=== PATIENT | male | born 1975 | race Hispanic/Latino ===

== ENCOUNTER 2020-05-10 20:46 | Emergency (ER) | payer BC, OTHER ==
--- OUTSIDE RECORDS SUMMARY | 2020-05-10 20:50 | XMS REPORT | Continuity of Care Document ---
:1975 Author Organization [facility] t Address [address] [place] [address] Care Team Providers Name Role Phone James GREEN Attending Clinician Jhon BENDER, T Attending Clinician Unavailable Lab, Fam Pob I Attending Clinician Unavailable Problems Condition Condition Condition Status Onset Resolution Last Treating Co mments Source Name Details Category Date Date Treatment Clinician Date Abscess or Abscess or Problem Active [facility] cellulitis cellulitis Sallie kes - of scalp [facility] Allergic Allergic Problem [facility] Obesity Obesity Problem [facility] Adult BMI Adult BMI Problem Active [facility] 39.0-39.9 39.0-39.9 Luke s - kg/sq m kg/sq m [facility] 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 [facility] Hyperlipid Hyperlipid Problem Active [facility] emia, emia, [facility] - mixed mixed [facility] Benign Benign Problem Active [facility] essential essential Luke s - HTN HTN [facility] Prediabete Prediabete Problem Active [facility] s s [facility] Dermoid Dermoid Diagnosis Active [facility] cyst of cyst of [facility] - scalp scalp [facility] Allergies, Adverse Reactions, Alerts This patient has no known allergies or adverse reactions. Medications Ordered Filled Start Stop Current Ordering Indication Dosage Frequency Signature Comments Components Source Medication Medication Date Date Medication? Clinician (SIG) Name Name Bactricholo WATTERS Bactrim DS 2018- 2019- No Ronni [address] [facility] 07-07 [facility]ita [facility] - 00:00: 00:00 [facility] 00 :00 [facility] Yes Ronni [address] [facility] Allergy Allergy Kovacev [facility] Lisinopril- Lisinopril- Yes Ronni [address] [facility] [address] Hydrochloro Hydrochloro Kovacev [facility] - thiazide thiazide [facility] Procedures This patient has no known procedures. Encounters Start End Encounter Admission Attending Care Care Encounter Source Date/Time Date/Time Type Type Clinicians Facility Department ID 2020-03-12 2020-03-12 Emergency Ramirez, [facility] [id number] 10:36:00 13:00:00 Tiago Villa [id number] [place] [id number] [place] [id number] 2020-03-12 2020-03-12 Nurse BEVERLEY Ferreira [id number] 00:00:00 00:00:00 Triage Shae MASON [id number] [facility] [id number] 2020-03-05 2020-03-05 Laboratory Lab, [facility] [id number] 13:09:50 13:29:50 Only Fam Pob I Health [id number] [place] [id number] Professio [id number] [address] 2018-07-07 2018-07-07 Outpatient [place] [id number] [address] 15:45:00 15:45:00 t Specialty/U [facility] 2018-07-07 2018-07-07 [facility]patient [place] [id number] 10:00:00 10:00:00 t [facility] Medicine [facility] 2018-04-30 2018-04-30 Outpatient [place] [id number] [address] 08:00:00 08:00:00 t Shop[facility] Medicine Outpati ent Clinics Results This patient has no known results.
--- NOTE | 2020-05-11 00:08 | ER ---
Nurse's Notes [facility] Name: Ozzy Vail Age: 44 yrs Sex: Male : 1975 Arrival Date: 05/10/2020 Time: 20:53 Bed 19 Private MD: Diagnosis: Chest pain, unspecified;Essential (primary) hypertension Presentation: 05/10 20:55 Method Of Arrival: Ambulatory ca1 20:55 Chief complaint: Patient states: Chest pain started around noon, gotten worse. reports ca1 lightheadedness. Coronavirus screen: Client denies travel out of the [place] in the last 14 days. At this time, the client does not indicate any symptoms associated with coronavirus-19. Ebola Screen: Patient negative for fever greater than or equal to 101.5 degrees Fahrenheit, and additional compatible Ebola Virus Disease symptoms Patient denies exposure to infectious person. Patient denies travel to an Ebola-affected area in the 21 days before illness onset. No symptoms or risks identified at this time. Initial Sepsis Screen: Does the patient meet any 2 criteria? No. Patient's initial sepsis screen is negative. Does the patient have a suspected source of infection? No. Patient's initial sepsis screen is negative. Risk Assessment: Do you want to hurt yourself or someone else? Patient reports no desire to harm self or others. Onset of symptoms was May 10, 2020. 20:55 Acuity: LAITH 3 ca1 Historical: - Allergies: 21:03 No Known Allergies; ca1 - Home Meds: 05/11 00:35 Zyrtec 10 mg oral tab 1 tab once daily [Active]; aspirin 81 mg Oral TbEC 1 tab once sf daily [Active]; multivitamin oral tab daily [Active]; omeprazole 20 mg Oral cpDR 1 cap once daily [Active]; losartan oral oral 1 tab once daily [Active]; - PMHx: 05/10 21:03 Hypertension; ca1 - PSHx: 21:03 elbow surgery; Tonsillectomy; ca1 - Immunization history:: Flu vaccine is not up to date. - Social history:: Smoking status: Patient denies any tobacco usage or history of. - Family history:: not pertinent. Screenin:53 Abuse screen: Denies threats or abuse. Denies injuries from another. Nutritional sf screening: No deficits noted. Tuberculosis screening: No symptoms or risk factors identified. Never had TB. Possible symptoms: None Risk factors: None. Fall Risk None identified. No fall in past 12 months (0 pts). No secondary diagnosis (0 pts). IV access (20 points). Ambulatory Aid- None/Bed Rest/Nurse Assist (0 pts). Gait- Normal/Bed Rest/Wheelchair (0 pts) Mental Status- Oriented to own ability (0 pts). Total Matson Fall Scale indicates No Risk (0-24 pts). Assessment: 23:53 General: Appears in no apparent distress. comfortable, Behavior is calm, cooperative, sf appropriate for age. Pain: Complains of pain in anterior aspect of right upper chest and anterior aspect of left upper chest Pain does not radiate. Pain currently is 5 out of 10 on a pain scale. Quality of pain is described as pressure, Pain began suddenly. Neuro: No deficits noted. Level of Consciousness is awake, alert, Oriented to person, place, time, situation. Cardiovascular: Reports chest pain, lightheadedness, Denies nausea, shortness of breath, syncope, vomiting, Patient's skin is warm and dry. Rhythm is sinus rhythm Chest pain quality is pressure. Respiratory: No deficits noted. Airway is patent Respiratory effort is even, unlabored, Respiratory pattern is regular, symmetrical, Denies cough, shortness of breath. GI: No signs and/or symptoms were reported involving the gastrointestinal system. : No signs and/or symptoms were reported regarding the genitourinary system. Derm: No signs and/or symptoms reported regarding the dermatologic system. Skin is pink, warm \T\ dry. 05/11 05:15 Reassessment: Patient appears in no apparent distress at this time. No changes from sf previously documented assessment. Patient and/or family updated on plan of care and expected duration. Pain level reassessed. Patient is alert, oriented x 3, equal unlabored respirations, skin warm/dry/pink. Patient states feeling better. Vital Signs: 05/10 20:55 BP 135 / 77; Pulse 93; Resp 18 S; Temp 97(TE); Pulse Ox 97% on R/A; Weight 138.35 kg ca1 (R); Height 6 ft. 1 in. (185.42 cm) (R); Pain 6/10; 23:49 BP 139 / 89; Pulse 80; Resp 18; Pulse Ox 98% ; Pain 5/10; sf 05/11 00:30 BP 143 / 98; Pulse 89; Resp 16; Pulse Ox 98% ; sf 01:00 BP 135 / 85; Pulse 75; Pulse Ox 98% ; sf 01:31 Pain 2/10; sf 02:00 BP 128 / 98; Pulse 70; Pulse Ox 97% ; sf 02:30 BP 125 / 84; Pulse 71; Resp 16; Pulse Ox 98% ; sf 02:37 Pain 0/10; sf 03:00 BP 117 / 79; Pulse 72; Resp 16; Pulse Ox 98% ; sf 04:00 BP 115 / 77; Pulse 73; Resp 16; Pulse Ox 97% ; sf 05:03 BP 140 / 93; Pulse 85; Resp 16; Pulse Ox 98% ; sf 05/10 20:55 Body Mass Index 40.24 (138.35 kg, 185.42 cm) ca1 Vitals: 05:03 Cardiac Rhythm Assessment Sinus rhythm. ED Course: 05/10 20:53 Patient arrived in ED. bp1 21:02 Triage completed. ca1 21:03 Arm band placed on right wrist. ca1 22:53 Patient has correct armband on for positive identification. Placed in gown. Bed in low sf position. Call light in reach. Side rails up X 1. vehicle monitor technician on. Pulse ox on. NIBP on. Door closed. Noise minimized. Visitors limited. Verbal reassurance given. 23:48 Rubin Taylor MD is Attending Physician. sunny 23:48 Bryant Tamayo, NPAOLEON is Primary Nurse. sf 23:53 Patient maintains SpO2 saturation greater than 95% on room air. 05/11 00:06 Hilton Santiago is Hospitalizing Provider. sunny 00:20 Initial lab(s) drawn, by me, sent to lab. Inserted saline lock: 20 gauge in right sf antecubital area, using aseptic technique. Blood collected. 00:25 No provider procedures requiring assistance completed. COVID swab sent to lab. sf 00:32 X-ray(s) taken. sf 00:33 XRAY Chest (1 view) Sent. sf 00:49 XRAY Chest (1 view) In Process Unspecified. EDMS 02:37 Repeat lab(s) drawn. by me, sent to lab. sf 04:54 CT Chest For PE Angio Sent. sf 05:10 CT Chest For PE Angio In Process Unspecified. EDMS 05:33 Chris Reeves MD is Referral Physician. sunny 05:33 Giuseppe Sawant MD is Referral Physician. sunny 06:19 IV discontinued, intact, bleeding controlled, No redness/swelling at site. Pressure sf dressing applied. Administered Medications: 00:44 Drug: NS 0.9% 1000 ml Route: IV; Rate: 125 ml/hr; Site: right antecubital; sf 06:24 Follow up: Response: No adverse reaction; IV Status: Completed infusion; IV Intake: sf 633ml 00:44 Drug: morphine 4 mg Route: IVP; Site: right antecubital; sf 04:03 Follow up: Response: No adverse reaction sf 00:44 Drug: Zofran (Ondansetron) 4 mg Route: IVP; Site: right antecubital; sf 04:03 Follow up: Response: No adverse reaction sf 00:45 Drug: Pepcid 20 mg Route: IVP; Site: right antecubital; sf 04:03 Follow up: Response: No adverse reaction sf 00:49 Drug: Lopressor 5 mg Route: IVP; Site: right antecubital; sf 04:03 Follow up: Response: No adverse reaction sf 00:54 Drug: Aspirin Chewable Tablet 324 mg Route: PO; sf 04:03 Follow up: Response: No adverse reaction sf 01:31 Drug: GI Cocktail without - (Maalox Suspension 30 ml, Lidocaine Liquid 2 % 15 sf ml) Route: PO; 04:02 Follow up: Response: No adverse reaction sf 05:15 Drug: Zithromax 500 mg Route: IVPB; Infused Over: 1 hrs; Site: right antecubital; sf 06:19 Follow up: Response: Medication administered at discharge.; IV Status: Completed sf infusion; IV Intake: 250ml 05:38 Not Given (Patient Refused): Decadron - Dexamethasone 10 mg IVP once sf Intake: 06:19 IV: 250ml; Total: 250ml. sf 06:24 IV: 633ml; Total: 883ml. Outcome: 00:07 Decision to Hospitalize by Provider. sunny 05:33 Discharge ordered by . sunny 05:42 Discharged to home ambulatory, with family. sf 05:42 Condition: stable 05:42 Discharge instructions given to patient, family, Instructed on discharge instructions, follow up and referral plans. medication usage, Demonstrated understanding of instructions, follow-up care, medications, Prescriptions given X 3. 06:27 Patient left the ED. sf Signatures: Dispatcher [employer] EDRubin Cueto MD MD cha Acob, Cheryl, RN RN ca1 Maria Elena Boateng Steven, RN RN sf Corrections: (The following items were deleted from the chart) 00:35 05/10 21:03 Home Meds: None; [facility]
--- NOTE | 2020-05-11 00:08 | EDPHYS ---
Physician Documentation [facility] Name: Ozzy Vail Age: 44 yrs Sex: Male : 1975 Arrival Date: 05/10/2020 Time: 20:53 Bed 19 Private MD: GABRIELA Physician Rubin Taylor HPI: 05/11 00:03 This 44 yrs old Male presents to ER via Ambulatory with complaints of Chest sunny Pain > 30 y/o. 00:03 The patient or guardian reports chest pain that is located primarily in the substernal sunny area. Onset: yesterday. The pain does not radiate. Associated signs and symptoms: The patient has no apparent associated signs or symptoms. The chest pain is described as causing indigestion, a pressure. Duration: The patient or guardian reports multiple episodes, with no pattern. Modifying factors: The symptoms are alleviated by nothing. the symptoms are aggravated by nothing. emotionally stressful situations. Severity of pain: At its worst the pain was mild in the emergency department the pain is unchanged. The patient has not experienced similar symptoms in the past. Historical: - Allergies: 05/10 21:03 No Known Allergies; ca1 - Home Meds: 05/11 00:35 Zyrtec 10 mg oral tab 1 tab once daily [Active]; aspirin 81 mg Oral TbEC 1 tab once sf daily [Active]; multivitamin oral tab daily [Active]; omeprazole 20 mg Oral cpDR 1 cap once daily [Active]; losartan oral oral 1 tab once daily [Active]; - PMHx: 05/10 21:03 Hypertension; ca1 - PSHx: 21:03 elbow surgery; Tonsillectomy; ca1 - Immunization history:: Flu vaccine is not up to date. - Social history:: Smoking status: Patient denies any tobacco usage or history of. - Family history:: not pertinent. ROS: 05/11 00:03 Constitutional: Negative for fever, chills, and weight loss, Eyes: Negative for injury, sunny pain, redness, and discharge, ENT: Negative for injury, pain, and discharge, Neck: Negative for injury, pain, and swelling, Respiratory: Negative for shortness of breath, cough, wheezing, and pleuritic chest pain, Abdomen/GI: Negative for abdominal pain, nausea, vomiting, diarrhea, and constipation, Back: Negative for injury and pain, : Negative for injury, bleeding, discharge, and swelling, MS/Extremity: Negative for injury and deformity, Skin: Negative for injury, rash, and discoloration, Neuro: Negative for headache, weakness, numbness, tingling, and seizure, Psych: Negative for depression, anxiety, suicide ideation, homicidal ideation, and hallucinations, Allergy/Immunology: Negative for hives, rash, and allergies, Endocrine: Negative for neck swelling, polydipsia, polyuria, polyphagia, and marked weight changes, Hematologic/Lymphatic: Negative for swollen nodes, abnormal bleeding, and unusual bruising. Cardiovascular: Positive for chest pain, of the chest. Exam: 00:03 Constitutional: This is a well developed, well nourished patient who is awake, alert, sunny and in no acute distress. Head/Face: Normocephalic, atraumatic. Eyes: Pupils equal round and reactive to light, extra-ocular motions intact. Lids and lashes normal. Conjunctiva and sclera are non-icteric and not injected. Cornea within normal limits. Periorbital areas with no swelling, redness, or edema. ENT: Nares patent. No nasal discharge, no septal abnormalities noted. Tympanic membranes are normal and external auditory canals are clear. Oropharynx with no redness, swelling, or masses, exudates, or evidence of obstruction, uvula midline. Mucous membranes moist. Neck: Trachea midline, no thyromegaly or masses palpated, and no cervical lymphadenopathy. Supple, full range of motion without nuchal rigidity, or vertebral point tenderness. No Meningismus. Chest/axilla: Normal chest wall appearance and motion. Nontender with no deformity. No lesions are appreciated. Cardiovascular: Regular rate and rhythm with a normal S1 and S2. No gallops, murmurs, or rubs. Normal PMI, no JVD. No pulse deficits. Respiratory: Lungs have equal breath sounds bilaterally, clear to auscultation and percussion. No rales, rhonchi or wheezes noted. No increased work of breathing, no retractions or nasal flaring. Abdomen/GI: Soft, non-tender, with normal bowel sounds. No distension or tympany. No guarding or rebound. No evidence of tenderness throughout. Back: No spinal tenderness. No costovertebral tenderness. Full range of motion. Male : Normal genitalia with no discharge or lesions. Skin: Warm, dry with normal turgor. Normal color with no rashes, no lesions, and no evidence of cellulitis. MS/ Extremity: Pulses equal, no cyanosis. Neurovascular intact. Full, normal range of motion. Neuro: Awake and alert, GCS 15, oriented to person, place, time, and situation. Cranial nerves II-XII grossly intact. Motor strength 5/5 in all extremities. Sensory grossly intact. Cerebellar exam normal. Normal gait. Psych: Awake, alert, with orientation to person, place and time. Behavior, mood, and affect are within normal limits. Vital Signs: 05/10 20:55 BP 135 / 77; Pulse 93; Resp 18 S; Temp 97(TE); Pulse Ox 97% on R/A; Weight 138.35 kg ca1 (R); Height 6 ft. 1 in. (185.42 cm) (R); Pain 6/10; 23:49 BP 139 / 89; Pulse 80; Resp 18; Pulse Ox 98% ; Pain 5/10; sf 05/11 00:30 BP 143 / 98; Pulse 89; Resp 16; Pulse Ox 98% ; sf 01:00 BP 135 / 85; Pulse 75; Pulse Ox 98% ; sf 01:31 Pain 2/10; sf 02:00 BP 128 / 98; Pulse 70; Pulse Ox 97% ; sf 02:30 BP 125 / 84; Pulse 71; Resp 16; Pulse Ox 98% ; sf 02:37 Pain 0/10; sf 03:00 BP 117 / 79; Pulse 72; Resp 16; Pulse Ox 98% ; sf 04:00 BP 115 / 77; Pulse 73; Resp 16; Pulse Ox 97% ; sf 05:03 BP 140 / 93; Pulse 85; Resp 16; Pulse Ox 98% ; sf 05/10 20:55 Body Mass Index 40.24 (138.35 kg, 185.42 cm) ca1 MDM: 05/10 23:48 Patient medically screened. sunny 05/11 00:07 Differential diagnosis: abnormal EKG, coronary artery disease chest wall pain, sunny esophagitis, hiatal hernia, peptic ulcer disease, stable angina, unstable angina. HEART Score: History: Moderately Suspicious (1), ECG: Non specific repolarization disturbance / LBTB / PM (1), Age: < or = 45 years (0), Risk Factors: 1 or 2 risk factors (1), [Hypertension] [Obesity] Troponin: < or = 1 x Normal Limit (0). The patient was given aspirin in the Emergency Department. The patient's deep vein thrombosis risk score was calculated as follows: Total Score: 0. This patient was found to be at low risk for a deep vein thrombosis by using the Well's assessment criteria. The patient's pulmonary embolism risk score was calculated as follows: Total Score: 0-2 points. This patient was found to be at low risk for a pulmonary embolism by using the Well's assessment criteria. JOSE ALFREDO Risk Score: 1 - Three or more CAD risk factors, [Family Hx], [HTN], [Elevated Cholesterol]. Data reviewed: vital signs, nurses notes, lab test result(s), EKG, radiologic studies, plain films. Data interpreted: case monitor: rate is 80 beats/min, rhythm is regular, Pulse oximetry: on room air is 98 %. Test interpretation: by ED physician or midlevel provider: ECG, plain radiologic studies. Counseling: I had a detailed discussion with the patient and/or guardian regarding: the historical points, exam findings, and any diagnostic results supporting the discharge/admit diagnosis, lab results, radiology results. 05/11 00:03 Order name: Basic Metabolic Panel; Complete Time: 01: [facility] 05/11 00:03 Order name: CBC with Diff; Complete Time: 01:04 [facility] 05/11 00:03 Order name: LFT's; Complete Time: 01:04 [facility] 05/11 00:03 Order name: Magnesium; Complete Time: 01:04 [facility] 05/11 00:03 Order name: NT PRO-BNP; Complete Time: 01:04 [facility] 05/11 00:03 Order name: PT-INR; Complete Time: 01:04 [facility] 05/11 00:03 Order name: Troponin (emerg Dept Use Only); Complete Time: 01:04 [facility] 05/11 00:03 Order name: XRAY Chest (1 view) [facility] 05/11 02:11 Order name: Troponin (emerg Dept Use Only): 230 am; Complete Time: 03:26 [facility] 05/11 03:59 Order name: SARS-COV-2 RT PCR; Complete Time: 04:34 [facility] 05/11 04:36 Order name: CT Chest For PE Angio 05/10 21:03 Order name: EKG; Complete Time: 21:03 [facility] 05/10 21:03 Order name: EKG - Nurse/Tech; Complete Time: 21: [facility] 05/11 00:03 Order name: Cardiac monitoring; Complete Time: 00:12 [facility] 05/11 00:03 Order name: IV Saline Lock; Complete Time: 00:33 [facility] 05/11 00:03 Order name: Labs collected and sent; Complete Time: 00:12 [facility] 05/11 00:03 Order name: O2 Per Protocol; Complete Time: 00:12 [facility] 05/11 00:03 Order name: O2 Sat Monitoring; Complete Time: 00:12 [facility] Administered Medications: 00:44 Drug: NS 0.9% 1000 ml Route: IV; Rate: 125 ml/hr; Site: right antecubital; sf 06:24 Follow up: Response: No adverse reaction; IV Status: Completed infusion; IV Intake: sf 633ml 00:44 Drug: morphine 4 mg Route: IVP; Site: right antecubital; sf 04:03 Follow up: Response: No adverse reaction sf 00:44 Drug: Zofran (Ondansetron) 4 mg Route: IVP; Site: right antecubital; sf 04:03 Follow up: Response: No adverse reaction sf 00:45 Drug: Pepcid 20 mg Route: IVP; Site: right antecubital; sf 04:03 Follow up: Response: No adverse reaction sf 00:49 Drug: Lopressor 5 mg Route: IVP; Site: right antecubital; sf 04:03 Follow up: Response: No adverse reaction sf 00:54 Drug: Aspirin Chewable Tablet 324 mg Route: PO; sf 04:03 Follow up: Response: No adverse reaction sf 01:31 Drug: GI Cocktail without - (Maalox Suspension 30 ml, Lidocaine Liquid 2 % 15 sf ml) Route: PO; 04:02 Follow up: Response: No adverse reaction sf 05:15 Drug: Zithromax 500 mg Route: IVPB; Infused Over: 1 hrs; Site: right antecubital; sf 06:19 Follow up: Response: Medication administered at discharge.; IV Status: Completed sf infusion; IV Intake: 250ml 05:38 Not Given (Patient Refused): Decadron - Dexamethasone 10 mg IVP once sf Disposition: 04:37 Co-signature as Attending Physician, Rubin Taylor MD I agree with the assessment and usnny plan of care. Disposition: 05/11/20 05:33 Discharged to Home. Impression: Chest pain, unspecified, Essential (primary) hypertension. - Condition is Stable. - Discharge Instructions: Nonspecific Chest Pain, Hypertension, Nonspecific Chest Pain, [id number], Hypertension, [id number], Aspirin and Your Heart, Managing Your Hypertension, COVID-19. - Prescriptions for Pepcid 20 mg Oral Tablet - take 1 tablet by ORAL route every 12 hours for 30 days; 20 tablet. Albuterol Sulfate 90 mcg/actuation - inhale 1-2 puff by INHALATION route every 4-6 hours; 1 Inhaler. Zithromax 500 mg Oral Tablet - take 1 tablet by ORAL route once daily for 4 days; 4 tablet. - Medication Reconciliation Form, Thank You Letter, Antibiotic Education, Prescription Opioid Use form. - Follow up: Private Physician; When: 2 - 3 days; Reason: Recheck today's complaints, Continuance of care, Re-evaluation by your physician. Follow up: Chris Reeves; When: 2 - 3 days; Reason: Recheck today's complaints, Re-evaluation by your physician. Follow up: Giuseppe Sawant; When: 2 - 3 days; Reason: Recheck today's complaints, Re-evaluation by your physician. - Problem is new. - Symptoms have improved. Signatures: Dispatcher [employer] Rubin Sanchez MD MD cha Roszak, Josh, PA PA [id number] Acob, Cheryl, RN RN ca1 Bryant Tamayo RN RN sf Corrections: (The following items were deleted from the chart) 00:35 05/10 21:03 Home Meds: None; ca1 sf 05/11 02:12 00:07 HEART Score: History: Moderately Suspicious (1), ECG: Non specific repolarization jr8 disturbance / LBTB / PM (1), Age: < or = 45 years (0), Risk Factors: > or = 3 Risk factors for atherosclerotic disease (2), [Hypertension] [+ Family HX] [Obesity] Troponin: < or = 1 x Normal Limit (0), sunny 02:55 00:05 CORONAVIRUS+MR.LAB.BRZ ordered. [facility] 04:37 00:07 Hospitalization Ordered by Hilton Santiago for Observation. Preliminary diagnosis sunny is Chest pain, unspecified; Angina pectoris; Essential (primary) hypertension. Bed requested for Telemetry/MedSurg (observation). Status is Observation. Condition is Fair. Problem is new. Symptoms have improved. sunny 06:27 05:33 05/11/2020 05:33 Discharged to Home. Impression: Chest pain, unspecified; sf Essential (primary) hypertension. Condition is Stable. Discharge Instructions: Nonspecific Chest Pain, Hypertension, Nonspecific Chest Pain, [id number], Hypertension, Iyan-zd-[id number], Aspirin and Your Heart, Managing Your Hypertension, COVID-19. Prescriptions for Pepcid 20 mg Oral Tablet - take 1 tablet by ORAL route every 12 hours for 30 days; 20 tablet, Albuterol Sulfate 90 mcg/actuation - inhale 1-2 puff by INHALATION route every 4-6 hours; 1 Inhaler, Zithromax 500 mg Oral Tablet - take 1 tablet by ORAL route once daily for 4 days; 4 tablet. and Forms are Medication Reconciliation Form, Thank You Letter, Antibiotic Education, Prescription Opioid Use. Follow up: Private Physician; When: 2 - 3 days; Reason: Recheck today's complaints, Continuance of care, Re-evaluation by your physician. Follow up: Chris Reeves; When: 2 - 3 days; Reason: Recheck today's complaints, Re-evaluation by your physician. Follow up: Giuseppe Sawant; When: 2 - 3 days; Reason: Recheck today's complaints, Re-evaluation by your physician. Problem is new. Symptoms have improved. sunny
[2020-05-11 00:51] LABS: Protime INR 1.16
[2020-05-11 00:52] LABS: Absolute Lymphocytes (CBC) 2.5 K/uL (0.7-4.9); Basophils % 0.9 % (0-1.3); Hematocrit 39.7 % (39.6-49.0); Lymphocytes % 23.3 % (15.3-44.8); MPV 9.2 fL (7.6-11.3)
[2020-05-11] MEDS ORDERED: METOPROLOL TAR 50 MG TAB ONE (00:56)
[2020-05-11] MEDS ORDERED: ASPIRIN EC 81 MG TAB PO ONE (00:57)
[2020-05-11] MEDS ORDERED: METOPROLOL TARTRATE 5 MG/5 ML INJ IV ONE (00:57)
[2020-05-11] MEDS ORDERED: MORPHINE 4 MG/ML SYR ONE (00:57)
[2020-05-11] MEDS ORDERED: ENOXAPARIN 100 MG/ML SYR SQ ONE (00:57)
[2020-05-11] MEDS ORDERED: ONDANSETRON 4 MG/2 ML VIAL ONE (00:57)
[2020-05-11] MEDS ORDERED: FAMOTIDINE 20 MG/2 ML VIAL IV ONE (00:58)
[2020-05-11] MEDS ORDERED: NA CHLORIDE 0.9% 1,000 ML ONE (00:58)
[2020-05-11] MEDS ORDERED: ENOXAPARIN 40 MG/0.4 ML SQ ONE (00:58)
[2020-05-11 01:02] LABS: ALT/SGPT 38 U/L (12-78); AST/SGOT 13 U/L (15-37); Albumin 3.8 g/dL (3.4-5.0); Alkaline Phosphatase 84 U/L (45-117); BUN Blood Urea Nitrogen 14 mg/dL (7-18); Bicarbonate 26 mmol/L (21-32); Bilirubin Direct 0.1 mg/dL (0-0.2); Bilirubin Total 0.6 mg/dL (0.2-1.0); Glucose Level 108 mg/dL (74-106); NT PRO-BNP 14 pg/mL (<125); Potassium 3.7 mmol/L (3.5-5.1); Protein, Total 7.9 g/dL (6.4-8.2); Sodium Level 137 mmol/L (136-145); Troponin (Emerg Dept Use Only) < 0.02 ng/mL (0.0-0.045)
[2020-05-11] MEDS ORDERED: ASPIRIN 81 MG CHEWABLE TABLET ONE (01:11)
[2020-05-11] MEDS ORDERED: MAGNES/ALUMIN/SIMET 30ML UCUP ONE (01:44)
[2020-05-11] MEDS ORDERED: LIDOCAINE VISCOUS 2% SOLN 15 ML UDC ONE (01:44)
[2020-05-11] MEDS ORDERED: AZITHROMYCIN 500 MG INJ IVPB ONE (05:26)
[2020-05-11] MEDS ORDERED: NA CHLORIDE 0.9% 250 ML ONE (05:26)
--- NOTE | 2020-05-11 07:55 | RAD REPORT ---
EXAM DESCRIPTION: RAD - Chest Single View - 05/11/2020 12:49 am CLINICAL HISTORY: CHEST PAIN COMPARISON: November 2012 TECHNIQUE: AP portable chest image was obtained 05/11/2020 12:49 am . FINDINGS: Lung volumes are low accentuating heart, vasculature and lung markings. No peripheral mass or consolidation. Heart size is magnified by the exam limitations. Significant failure or volume ove rload are doubtful. No measurable pleural effusion and no pneumothorax. No acute bony abnormality see n. No acute aortic findings suspected. IMPRESSION: Limited study without acute cardiopulmonary finding.
[2020-05-11 08:08] VITALS: TEMP 97
[2020-05-11 08:20] VITALS: BP 140/93; O2SAT 98
--- NOTE | 2020-05-11 12:19 | RAD REPORT ---
EXAM DESCRIPTION: CT - Chest For Pe Angio - 05/11/2020 7:07 am CLINICAL HISTORY: The patient is 44 years old and is Male; CHEST PAIN TECHNIQUE: Axial computed tomographic angiography images of the chest with intravenous contrast. S agittal and coronal reformatted images were created and reviewed. This CT exam was performed using one or more of the following dose reduction techniques: automated exposure control, adjustment of t he mA and/or kV according to patient size, and/or use of iterative reconstruction technique. MIP reconstructed images were created and reviewed. COMPARISON: No relevant prior studies available. FINDINGS: PULMONARY ARTERIES: Unremarkable. No pulmonary embolism. AORTA: No acute findings. No thoracic aortic aneurysm. LUNGS: Unremarkable. No mass. No consolidation. PLEURAL SPACE: Unremarkable. No significant effusion. No pneumothorax. HEART: Unremarkable. No cardiomegaly. No significant pericardial effusion. No evidence of RV dysfunction. BONES/JOINTS: No acute fracture. No dislocation. SOFT TISSUES: Unremarkable. LYMPH NODES: Unremarkable. No enlarged lymph nodes. IMPRESSION: Normal chest CTA. No pulmonary embolism. Electronically signed by: Linda Hernandez MD 05/11/2020 5:19 AM APPLICATION PACKAGING CONSULTANT Due to temporary technical issues with the PACS/Fluency reporting system, reports are being signed by the in house radiologist without review as a courtesy to ensure prompt reporting. The interpreting r adiologist is fully responsible for the content of the report.
--- NOTE | 2020-05-11 14:10 | EKG ---
Test Date: 2020-05-10 Test Time: 20:59:55 Plasma Processing Technician: BILL MEASUREMENT RESULTS: Intervals: Rate: 97 OR: 134 QRSD: 84 QT: 336 QTc: 426 [place]: P: 41 OR: 134 QRS: 39 T: -4 INTERPRETIVE STATEMENTS: Normal sinus rhythm Normal ECG Compared to ECG 12/07/2012 17:57:45 No significant changes Electronically Signed On 05-11-20 14:08:56 HUMAN RESOURCES DEPARTMENT SUPERVISOR by Giuseppe Sawant
== END 2020-05-11 06:27 | disposition home or self-care (01) ==
LOC: ER 20:46
DX: U07.1 COVID-19 (principal); I10 Essential (primary) hypertension; Z79.82 Long term (current) use of aspirin
CPT/HCPCS: 96365; 96361; 93005; 85025; 80048; 36415; 83735; 85610; 80076; 84484 ×2; 83880; 71275; 71045; 96375; 99285; U0003; Q9967; J0456; J7050; J7030; J2405; J1650

== ENCOUNTER 2022-07-21 14:45 | Emergency (ER) | payer BC ==
--- OUTSIDE RECORDS SUMMARY | 2022-07-21 15:41 | XMS REPORT | Continuity of Care Document ---
:1975 Author Organization [facility] t Address [address] [facility] [address] [place] [address] Care Team Providers Name Role Phone XAVIER LEWIS Primary Care Physician Unavailable SHANEKA CRAWLEY Attending Clinician Unavailable Shaneka Crawley DO Attending Clinician DARREN RAMIREZ Attending Clinician Unavailable Darren Ramirez MD Attending Clinician Jhon BENDER, Shae Jones Attending Clinician Unavailable Lab, Adc F[facility] Pob I Attending Clinician Unavailable Sandra Callejas Attending Clinician SANDRA MYERS Attending Clinician Unavailable DARREN RAMIREZ Admitting Clinician Unavailable Payers Payer Name Policy Type Policy Number Effective Date Expiration Date S samia [facility] [id number] 2021 00:00:00 [facility] [id number] 2017 00:00:00 Problems Condition Condition Condition Status Onset Resolution Last Treating Co mments Source Name Details Category Date Date Treatment Clinician Date Abscess or Abscess or Problem Active C ommon cellulitis cellulitis Sp melecio of scalp of scalp [facility] Heart Allergic Allergic Problem Active Commo n rhinitis rhinitis [facility] Obesity Obesity Problem Active Common [facility] Adult BMI Adult BMI Problem Active Com mon 39.0-39.9 39.0-39.9 Spir it kg/sq m kg/sq [facility] Onychomyco Onychomyco Problem Active C daria sis sis [facility] Hyperlipid Hyperlipid Problem Active C ommon emia, emia, Spirit mixed mixed - [facility] Benign Benign Problem Active Common essential essential Spir it HTN HTN - [facility] Prediabete Prediabete Problem Active C daria s s Spirit [facility] Dermoid Dermoid Diagnosis Active Commo n cyst of cyst of Spirit scalp scalp - [facility] Allergies, Adverse Reactions, Alerts Allergy Allergy Status Severity Reaction(s) Onset Inactive Treating Comm ents Source Name Type Date Date Clinician NO KNOWN Drug Active Univers ALLERGIE Class ity of S [facility] [place] [place] Social History Social Habit Start Date Stop Date Quantity Comments Source [facility] to [facility]2 [facility] Smoking Status Start Date Stop Date Source Unknown if ever smoked [facility] Medications Ordered Filled Start Stop Current Ordering Indication Dosage Frequency Signature Comments Components Source Medication Medication Date Date Medication? Clinician (SIG) Name Name ondansetron 2019-03 Yes [id number] 4mg Take 1 Univers 4 mg 2-28 tablet by ity of disintegrat 00:00: mouth [place] ing tablet 00 every 4 Medica l (four) Branch hours as needed for Nausea and Vomiting (N/V). benzonatate 2019-03 Yes [id number] 100mg Take 1 Univers 100 mg 2-28 capsule by ity of capsule 00:00: mouth 3 [place] 00 (three) Medical times Branch daily as needed for Cough. albuterol 2019-03 Yes [id number] 2{puff} Inhale 2 Univers 90 2-28 Puffs ity of mcg/actuati 00:00: every 4 Tanvir as on inhaler 00 (four) Medical hours as Branch needed for Wheezing or Shortness of Breath. Bactrim DS Bactrim DS 2018-0 2019- No Ronni 1 tablet Common 4-24 - Kovacev Spirit 00:00: 00:00 - [facility] 00 :00 [facility] Lisinopril- Lisinopril- Yes Ronni 1 tablet Common Hydrochloro Hydrochloro [facility] Spirit thiazide thiazide - [facility] Zyrtec Zyrtec Yes Ronni 1 tablet Common Allergy Allergy Babita [facility] Vital Signs Vital Name Observation Time Observation Value Comments Source Systolic blood 2020-03-12 17:30:00 161 mm[Hg] Univer sity of pressure [facility] Branch Diastolic blood 2020-03-12 17:30:00 100 mm[Hg] Unive rsity of pressure [facility] [place] [place] Heart rate 2020-03-12 17:30:00 97 /min Universi ty of [facility] [place] Respiratory rate 2020-03-12 17:30:00 23 /min Univ ersity of [facility] [place] Oxygen saturation in 2020-03-12 17:30:00 95 /min University of Arterial blood by [facility] Pulse oximetry Branch Body temperature 2020-03-12 16:43:00 36.94 Keily [facility] of [facility] [place] Body weight 2020-03-12 16:43:00 138[facility]347 [facility] Systolic blood 2020-03-12 17:30:00 161 mm[Hg] Univer sity of pressure [facility] [place] Diastolic blood 2020-03-12 17:30:00 100 mm[Hg] Unive rsity of pressure [facility] [place] Heart rate 2020-03-12 17:30:00 97 /min Universi ty of [facility] Respiratory rate 2020-03-12 17:30:00 23 /min Univ ersity of [facility] Oxygen saturation in 2020-03-12 17:30:00 95 /min University of Arterial blood by [facility] Pulse oximetry Branch Body temperature 2020-03-12 16:43:00 36.94 Keily [facility] Body weight 2020-03-12 16:43:00 138.347 kg [facility] Procedures Procedure Date / Time Performing Clinician Source Performed XR CHEST 1 VW 2020-03-12 17:04:47 Darren Ramirez [facility] TROPONIN I 2020-03-12 16:47:00 James Darren [facility] HEPATIC FUNCTION PANEL 2020-03-12 16:47:00 Darren Ramirez [facility] ([id number]) (ALB,T.PRO,BILI Medical Branch T,BU/BC,ALT,AST,ALK PHOS) BASIC METABOLIC PANEL 2020-03-12 16:47:00 Darren Ramirez [facility] (NA, K, CL, CO2, Medical Branch GLUCOSE, BUN, CREATININE, CA) CBC WITH DIFF 2020-03-12 16:47:00 Darren Ramirez o f [facility] [place] PROTHROMBIN TIME / INR 2020-03-12 16:47:00 Darren Ramirez [facility] ACTIVATED PARTIAL 2020-03-12 16:47:00 Darren Ramirez [facility] THRMPLAS TANNER [facility] N-TERMINAL PRO-BNP 2020-03-12 16:47:00 Darren Ramirez [facility] NOTICE OF PRIVACY 2020-03-12 16:34:49 Doctor Unassigned, No [facility] PR[facility] Name [facility] Branch CONSENT/REFUSAL FOR 2020-03-12 16:34:30 Doctor Unassigned, No [facility] DI[facility]NOS[facility] AND TREATMENT Name [facility] Encounters Start End Encounter Admission Attending Care Care Encounter Source Date/Time Date/Time Type Type Clinicians Facility Department ID 2022-07-22 2022-07-22 Outpatient CARI CRAWLEY [id number] Cari 14:00:00 14:00:00 SHANEKA mccarthy 2022-07-21 2022-07-21 Outpatient CARI CRAWLEY [id number] Cari 00:00:00 00:00:00 SHANEKA mccarthy 2021-10-14 2021-10-14 Outpatient CARI CRAWLEY [id number] Cari 00:00:00 00:00:00 SHANEKA mccarthy 2021-10-10 2021-10-10 Office Juan Crawley [id number] Cari 16:00:00 16:30:00 Visit Shaneka Vidales 350.1.13.13 Se [place] 1.2.7.2.686 [id number] 2021-10-10 2021-10-10 Outpatient CARI CRAWLEY [id number] Cari 16:00:00 16:00:00 SHANEKA mccarthy 2020-03-12 2020-03-12 Emergency X TYESHA RAMIREZ ERT [id number] Univers 10:36:00 13:00:00 DARREN gordon [facility] 2020-03-12 2020-03-12 Emergency TYESHA Ramirez [id number] Univers 10:36:00 13:00:00 Darren Villa 350.1.13.10 i ty of [place] 4.2.7.2.686 [facility] [id number] [address] 2020-03-12 2020-03-12 Emergency Ramirez, [facility] [id number] 10:36:00 13:00:00 Darren Villa 350.1.13.10 [place] 4.2.7.2.686 [place] [id number] [facility] 2020-03-12 2020-03-12 Nurse BEVERLEY Ferreira [id number] Univers 00:00:00 00:00:00 Triage Shae MASON 350.1.13.10 it y of [facility] 4.2.7.2.686 Tanvir as [id number] [address] 2020-03-12 2020-03-12 Nurse BEVERLEY Ferreira [id number] 00:00:00 00:00:00 Triage Shae MASON 350.1.13.10 [facility] 4.2.7.2.686 [id number] [facility] 2020-03-05 2020-03-05 Laboratory Lab, [facility] Fam Pob I [facility] [id number] [facility] 13:09:50 13:29:50 Only Yusra [facility] 350.1.13.10 ity of [place] 4.2.7.2.686 Tanvir as Professio [id number] Vt dical [address] Office [facility] 2020-03-05 2020-03-05 Laboratory Lab, [facility] [id number] 13:09:50 13:29:50 Only Fam Pob I Health 350.1.13.10 [place] 4.2.7.2.686 Professio [id number] [place] [address] Office [facility] 2020-03-05 2020-03-05 Outpatient R YUSRA [facility] [id number] Univers 13:20:00 13:20:00 SANDRA ity of [facility] [place] 2018-07-07 2018-07-07 [id number] Common 15:45:00 15:45:00 t Specialty/U Sp melecio Specialty rology - [facility] 2018-07-07 2018-07-07 Outpatient Gage [place] [id number] Common 10:00:00 10:00:[address] [facility] 2018-04-30 2018-04-30 Outpatient Gage [place] [id number] Common 08:00:00 08:00:[address] [facility] Results Test Description Test Test Results Result Source Time Comments Comments Chest 1 View 2020-02- Bilateral infiltrates may reflect multifocal [facility] 17:57:51 pneumonia in the Branch appropriateclinical setting. As this appearance is not entirely specific, recommendclinical correlation and follow-up to document resolution. INDICATION: ?dyspnea ORDERING PROVIDER: ?DARREN RAMIREZ TECHNIQUE: ?Frontal view of the chest. RL: ?5944 FINDINGS: ?Patchy mid to lower lung zone pulmonary infiltrates are notedbilaterally, greater on the left than the right. No large pleural fluidcollection or pneumothorax is identified. The cardiac silhouette andpulmonary vascularity are within normal limits. No acute osseousabnormality is demonstrated. [facility], Radiant Results Inft User - 03/12/2020 11:59 AM CSTINDICATION: dyspnea ORDERING PROVIDER: DARREN RAMIREZTECHNIQUE: Frontal view of the chest.RL: 5944FINDINGS: Patchy mid to lower lung zone pulmonary infiltrates are notedbilaterally, greater on the left than the right. No large pleural fluidcollection or pneumothorax is identified. The cardiac silhouette andpulmonary vascularity are within normal limits. No acute osseousabnormality is demonstrated.IMPRESSION Bilateral infiltrates may reflect multifocal pneumonia in the appropriateclinical setting. As this appearance is not entirely specific, recommendclinical correlation and follow-up to document resolution.Electronical ly signed by Ba Phelps MD at 03/12/2020 11:57 AM aPTT 2020-03-12 17:38:00 Test Item Value Reference Range Interpretation Comme nts APTT Patient (test code = See_Comment [ Automated message] The 3173-2) system which ge nerated this result tra nsmitted reference range : 23 - 38 Seconds. The re ference range was not u sed to interpret this result as normal/abnormal . YENIFER (test code = YENIFER) The [facility] patient population mean normal value for aPTT is 30 seconds. Lab Interpretation (test Normal code = 02162-5) [facility] Time (PT) / [id number] 17:37:00 Test Item Value Reference Range Interpretation Comments PROTIME PATIENT (test See_Comment [Auto mated message] code = 5964-2) The system wh ich generated this result transmitted ref erence range: 12.0 - 1 4.7 Seconds. The re ference range was not u sed to interpret this result as normal/abnor mal. INR (test code = 6301-6) Nor mal INR <1.1; Warfarin Therap eutic range 2.0 to 3. 0 or 2.5 to 3.5, dep ending upon the indica tions. Lab Interpretation (test Normal code = 36949-7) [facility]ennial[facility]roponin [id number] 17:28:00 Test Item Value Reference Range Interpretation Comments TROPONIN I (test <0.012 See_Comment [Automated code = 7345754157) message] The system which generated this result transmitted reference range : <=0.034 ng/mL. The reference range was not used to interpr et this result as normal/abnormal . YENIFER (test code = Equal or Less than YENIFER) 0.034 ng/ml---Normal ?Note: Cardiac troponin begins to rise 3-4 hours after the onset of ischemia. Repeat in 4-6 hours if the sample was drawn within 3-4 hours of the onset of the symptom and found normal. Between 0.035 and 0.120 ng/mL--- Borderline. Questionable myocardial injury or necrosis ? ?Note: Serial measurement may be necessary to confirm or exclude the diagnosis of myocardial injury or necrosis; Clinical correlation (symptoms, EKGs, imaging studies, and others) required; Repeat in 4-6 hours if clinically indicated. ? Equal or Higher than 0.121 ng/mL---Abnormal. Myocardial Injury or Necrosis Likely ? Biotin has been reported to cause a negative bias, interpret results relative to patient's use of biotin. ? Lab Interpretation Normal (test code = 09145-1) [facility]ennialN-TERMINAL [id number] 17:24:00 Test Item Value Reference Range Interpretation Comments NT-proBNP (test code 17 pg/mL See_Comment [Autom ated = 3166985551) message] The system which generated this result transmitted reference range : <=125. The reference range was not used to interpret this result as normal/abnormal . YENIFER (test code = YENIFER) Biotin has been reported to cause a negative bias, interpret results relative to patient's use of biotin. Lab Interpretation Normal (test code = 07208-3) [facility] Metabolic Panel (NA, K, CL, CO2, GLUCOSE, BUN, CREATININE, CA)2020-03-12 17:16:00 Test Item Value Reference Range Interpretation Comments NA (test code = 135 mmol/L 135-145 1254302420) K (test code = 4.0 mmol/L 3.5-5 7593091852) CL (test code = 100 mmol/L 98-108 3906401700) CO2 TOTAL (test code = 24 mmol/L 23-31 7820093219) AGAP (test code = 2-16 8442490045) BUN (test code = 12 mg/dL 7-23 3988671553) GLUCOSE (test code = 123 mg/dL 70-110 H 8011483375) CREATININE (test code = 0.77 mg/dL 0.6-1.25 8823749945) CALCIUM (test code = 8.8 mg/dL 8.6-10.6 6985821086) eGFR Calculation mL/min/1.73m2 (Non-) (test code = 8772071732) eGFR Calculation mL/min/1.73m2 () (test code = 5043706773) YENIFER (test code = YENIFER) Association of Glomerular Filtration Rate (GFR) and Staging of Kidney Disease* + --+ --+ ------+| GFR (mL/min/1.73 m2) ?| With Kidney Damage ?| ?Without Kidney Damage+ --------+ --------+ +| ?>90 ?| ?Stage one ?| ? Normal ?+ ---+ ---+ -------+| ?60-89 ?| ?Stage two ?| ? Decreased GFR ? + --+ --+ ------+| ?30-59 ?| ?Stage three ?| ? Stage three ? + --+ --+ ------+| ?15-29 ?| ?Stage four ? | ? Stage four ?+ ---+ ---+ -------+| ?<15 (or dialysis) ? ?| ?Stage five ? | ? Stage five ?+ ---+ ---+ -------+ *Each stage assumes the associated GFR level has been in effect for at least three months. ?Stages 1 to 5, with or without kidney disease, indicate chronic kidney disease. Notes: Determination of stages one and two (with eGFR >59mL/min/1.73 m2) requires estimation of kidney damage for at least three months as defined by structural or functional abnormalities of the kidney, manifested by either:Pathological abnormalities or Markers of kidney damage (including abnormalities in the composition of the blood or urine or abnormalities in imaging tests). Lab Interpretation Abnormal (test code = 72811-4) [facility] Function Panel (ALB, T.PRO, BILI T, BU/BC, ALT, AST, ALK PHOS)2020-03-12 17:16:00 Test Item Value Reference Range Interpretation Comments TOTAL BILI (test code = 6256243874) 0.7 mg/dL 0.1-1.1 BILI UNCON (test code = 6459393281) 0.6 mg/dL 0.1-1.1 BILI CONJ (test code = 9787807509) 0.0 mg/dL 0-0.3 T PROTEIN (test code = 9075614331) 8.0 g/dL 6.3-8.2 ALBUMIN (test code = 0469442420) 4.3 g/dL 3.5-5 ALK PHOS (test code = 3437117647) 85 U/L 34-122 ALTv (test code = 1742-6) 29 U/L 5-50 AST(SGOT) (test code = 0063720085) 30 U/L 13-40 Lab Interpretation (test code = Normal 79974-1) [facility] with [id number] 17:12:00 Test Item Value Reference Range Interpretation Comments WBC (test code = See_Comment [Automated 6690-2) message] The sy stem which generated this result transmitted reference range : 4.20 - 10.70 10*3/?L. The reference range was not used to interpret this result as normal/abnormal . RBC (test code = See_Comment [Automated 789-8) message] The sy stem which generated this result transmitted reference range : 4.26 - 5.52 10*6/?L. The reference range was not used to interpret this result as normal/abnormal . HGB (test code = 15.0 g/dL 12.2-16.4 718-7) HCT (test code = 43.2 % 38.4-49.3 4544-3) MCV (test code = 84.0 fL 81.7-95.6 787-2) MCH (test code = 29.2 pg 26.1-32.7 785-6) MCHC (test code = 34.7 g/dL 31.2-35 786-4) RDW-SD (test code = 36.6 fL 38.5-51.6 L 73332-3) RDW-CV (test code = 12.0 % 12.1-15.4 L 788-0) PLT (test code = See_Comment [Automated 777-3) message] The sy stem which generated this result transmitted reference range : 150 - 328 10*3/ ?L. The reference r naren was not used to interpret this result as normal/abnormal . MPV (test code = 10.3 fL 9.8-13 66117-1) NRBC/100 WBC (test See_Comment [Automat ed code = 8667692111) message] The system which generated this result transmitted reference range : 0.0 - 10.0 /100 WBCs. The refer ence range was not u sed to interpret th is result as normal/abnormal . NRBC x10^3 (test code <0.01 See_Comment [Auto mated = 6730431923) message] The s ystem which generated this result transmitted reference range : 10*3/?L. The reference range was not used to interpret this result as normal/abnormal . GRAN MAT (NEUT) % 58.8 % (test code = 770-8) IMM GRAN % (test code 0.20 % = 4188424506) LYMPH % (test code = 31.6 % 736-9) MONO % (test code = 8.6 % 5905-5) EOS % (test code = 0.6 % 713-8) BASO % (test code = 0.2 % 706-2) GRAN MAT x10^3(ANC) 2.79 10*3/uL 1.99-6.95 (test code = 0713025155) IMM GRAN x10^3 (test <0.03 0-0.06 code = 4855157229) LYMPH x10^3 (test code 1.50 10*3/uL 1.09-3.23 = 731-0) MONO x10^3 (test code 0.41 10*3/uL 0.36-1.02 = 742-7) EOS x10^3 (test code = 0.03 10*3/uL 0.06-0.53 L 711-2) BASO x10^3 (test code <0.03 0.01-0.09 = 704-7) Lab Interpretation Abnormal (test code = 81527-2) [facility]"
[2022-07-21 16:14] LABS: Specific Gravity 1.018 (1.005-1.030); Urine Bilirubin NEGATIVE (Negative); Urine Blood Negative (Negative); Urine Clarity Clear (Clear); Urine Color Light-Yellow (Yellow); Urine Glucose NEGATIVE (Negative); Urine Protein NEGATIVE (Negative); Urine Urobilinogen Normal (Normal); Urine pH 6.5 (5.0-7.0)
--- NOTE | 2022-07-21 16:56 | RAD REPORT ---
EXAM DESCRIPTION: US - Scrotum Testicles - 07/21/2022 3:15 pm CLINICAL HISTORY: testicular pain COMPARISON: No comparisons TECHNIQUE: Sonographic grayscale and color flow images of the scrotum were obtained. FINDINGS: The right testicle measures 4.3 x 2.2 x 2.6 centimeter. No intratesticular masses or evide nce of testicular torsion. The left testicle measures 2.2 x 1.3 x 2.8 centimeter. No intratesticular masses or evidence of testi cular torsion. Both epididymides are normal in size and appearance, except for an 8 x 7 x 7 millimeter right epididy mal cyst. Tiny left epididymal head cyst suggestive of spermatoceles are also noted. No pathologic fluid collections. IMPRESSION: No acute findings. Incidental small cystic lesions of the right epididymis head left epididymal head.
--- NOTE | 2022-07-21 17:23 | ER ---
Nurse's Notes [facility] Name: Ozzy Vail Age: 46 yrs Sex: Male : 1975 Arrival Date: 07/21/2022 Time: 14:45 Bed 25 Private MD: Christofer Crawley Diagnosis: Left testicular pain;Right testicular pain Presentation: 07/21 15:19 Chief complaint: Patient states: he has been having testicular pain for approx 2 weeks ap3 that will go to both his left and right testicles. Coronavirus screen: At this time, the client does not indicate any symptoms associated with coronavirus-19. Ebola Screen: No symptoms or risks identified at this time. Initial Sepsis Screen: Does the patient meet any 2 criteria? No. Patient's initial sepsis screen is negative. Does the patient have a suspected source of infection? No. Patient's initial sepsis screen is negative. Risk Assessment: Do you want to hurt yourself or someone else? Patient reports no desire to harm self or others. Onset of symptoms was July 07, 2022. 15:19 Method Of Arrival: Ambulatory ap3 15:19 Acuity: LAITH 3 ap3 Triage Assessment: 15:21 General: Appears in no apparent distress. Behavior is calm, cooperative, appropriate ap3 for age. Pain: Complains of pain in left testicle and right testicle Pain began gradually, two weeks ago. Neuro: Level of Consciousness is awake, alert, obeys commands, Oriented to person, place, time, situation. Cardiovascular: Patient's skin is warm and dry. Respiratory: Airway is patent Respiratory effort is even, unlabored, Respiratory pattern is regular, symmetrical. GI: Patient currently denies nausea, vomiting. Historical: - Allergies: 15:21 No Known Allergies; ap3 - PMHx: 15:21 Hypertension; ap3 - Immunization history:: Client reports having NOT received the Covid vaccine. - Social history:: Smoking status: Patient denies any tobacco usage or history of. Screenin:22 [facility] ED Fall Risk Assessment (Adult) History of falling in the last 3 months, ap3 including since admission No falls in past 3 months (0 pts). Abuse screen: Denies threats or abuse. Nutritional screening: No deficits noted. Tuberculosis screening: No symptoms or risk factors identified. Assessment: 17:27 Reassessment: Patient is alert, oriented x 3, equal unlabored respirations, skin aa5 warm/dry/pink. Vital Signs: 15:19 BP 146 / 89; Pulse 82; Resp 17; Temp 97.8; Pulse Ox 96% ; Weight 129.73 kg; Height 6 ap3 ft. 1 in. ; Pain 3/10; 15:19 Body Mass Index 37.73 (129.73 kg, 185.42 cm) ap3 15:19 Pain Scale: Adult ap3 ED Course: 14:48 Patient arrived in ED. am2 14:48 Christofer Crawley DO is Private Physician. am2 14:52 Avelino Prather MD is Attending Physician. kdr 15:17 US Scrotum Testicles In Process Unspecified. EDMS 15:21 Triage completed. ap3 15:22 Arm band placed on right wrist. ap3 16:05 Urinalysis w/ reflexes Sent. zm 17:22 Daniel Connor MD is Referral Physician. kdr 17:28 No provider procedures requiring assistance completed. Patient did not have IV access aa5 during this emergency room visit. Administered Medications: No medications were administered Medication: 17:27 VIS not applicable for this client. aa5 Outcome: 17:22 Discharge ordered by . kdr 17:27 Discharged to home ambulatory. aa5 17:27 Condition: stable 17:27 Discharge instructions given to patient, Instructed on discharge instructions, follow up and referral plans. Demonstrated understanding of instructions, follow-up care. 17:28 Patient left the ED. aa5 Signatures: Dispatcher [employer] EDIL Avelino Prather MD MD kdr Lela Walker RN RN aa5 Ashtyn Henry Ashtyn Daniel RN RN ap3 Francine Gonzalez
--- NOTE | 2022-07-21 17:23 | EDPHYS ---
Physician Documentation [facility] Name: Ozzy Vail Age: 46 yrs Sex: Male : 1975 Arrival Date: 07/21/2022 Time: 14:45 Bed 25 Private MD: Christofer Crawley ED Physician Avelino Prather HPI: 07/21 17:25 This 46 yrs old Male presents to ER via Ambulatory with complaints of kdr Testicular Pain, Abdominal Pain. 17:25 The patient presents with tenderness, that is mild, Bilateral testicular pain that is kdr intermittent and alternates from from one side to the other. Onset: The symptoms/episode began/occurred gradually, 2 week(s) ago. Modifying factors: The symptoms are alleviated by nothing, the symptoms are aggravated by nothing. Associated signs and symptoms: The patient has no apparent associated signs or symptoms. Severity of symptoms: At their worst the symptoms were mild, in the emergency department the symptoms are unchanged. The patient has not experienced similar symptoms in the past. The patient has not recently seen a physician. Historical: - Allergies: 15:21 No Known Allergies; ap3 - PMHx: 15:21 Hypertension; ap3 - Immunization history:: Client reports having NOT received the Covid vaccine. - Social history:: Smoking status: Patient denies any tobacco usage or history of. ROS: 17:25 Constitutional: Negative for fever, chills, and weight loss, Eyes: Negative for injury, kdr pain, redness, and discharge, Neck: Negative for injury, pain, and swelling, Cardiovascular: Negative for chest pain, palpitations, and edema, Respiratory: Negative for shortness of breath, cough, wheezing, and pleuritic chest pain, Abdomen/GI: Negative for abdominal pain, nausea, vomiting, diarrhea, and constipation, Back: Negative for injury and pain, MS/Extremity: Negative for injury and deformity, Skin: Negative for injury, rash, and discoloration, Neuro: Negative for headache, weakness, numbness, tingling, and seizure activity. 17:25 : Positive for testicular pain of the groin. Exam: 17:25 Constitutional: This is a well developed, well nourished patient who is awake, alert, kdr and in no acute distress. Head/Face: Normocephalic, atraumatic. Eyes: Pupils equal round and reactive to light, extra-ocular motions intact. Lids and lashes normal. Conjunctiva and sclera are non-icteric and not injected. Cornea within normal limits. Periorbital areas with no swelling, redness, or edema. Neck: Trachea midline, no thyromegaly or masses palpated, and no cervical lymphadenopathy. Supple, full range of motion without nuchal rigidity, or vertebral point tenderness. No Meningismus. Abdomen/GI: Soft, non-tender, with normal bowel sounds. No distension or tympany. No guarding or rebound. No evidence of tenderness throughout. Skin: Warm, dry with normal turgor. Normal color with no rashes, no lesions, and no evidence of cellulitis. Neuro: Awake and alert, GCS 15, oriented to person, place, time, and situation. Cranial nerves II-XII grossly intact. Motor strength 5/5 in all extremities. Sensory grossly intact. Cerebellar exam normal. Normal gait. Psych: Awake, alert, with orientation to person, place and time. Behavior, mood, and affect are within normal limits. 17:25 : CVA tenderness, is absent, Male external genitalia: normal, no abrasion, no discharge, no erythema, no injury, no swelling, no evidence of ulceration, lesion, painful. Vital Signs: 15:19 BP 146 / 89; Pulse 82; Resp 17; Temp 97.8; Pulse Ox 96% ; Weight 129.73 kg; Height 6 ap3 ft. 1 in. ; Pain 3/10; 15:19 Body Mass Index 37.73 (129.73 kg, 185.42 cm) ap3 15:19 Pain Scale: Adult ap3 MDM: 17:22 Patient medically screened. kdr 17:25 Data reviewed: vital signs, nurses notes, lab test result(s), radiologic studies. kdr 07/21 14:54 Order name: Urinalysis w/ reflexes; Complete Time: 16:28 kdr 07/21 14:54 Order name: US Scrotum Testicles; Complete Time: 17:08 kdr Administered Medications: No medications were administered Disposition Summary: 07/21/22 17:22 Discharge Ordered Location: Home kdr Problem: an ongoing problem kdr Symptoms: are unchanged kdr Condition: Stable kdr Diagnosis - Left testicular pain kdr - Right testicular pain kdr Followup: kdr - With: Private Physician - When: 2 - 3 days - Reason: If symptoms return, Further diagnostic work-up, Recheck today's complaints, Continuance of care, Re-evaluation by your physician Followup: kdr - With: Daniel Connor MD - When: 2 - 3 days - Reason: If symptoms return, Further diagnostic work-up, Recheck today's complaints, Continuance of care, Re-evaluation by your physician Discharge Instructions: - Discharge Summary Sheet kdr - Testicular Self-Exam, [id number] kdr Forms: - Medication Reconciliation Form kdr - Thank You Letter kdr Signatures: Dispatcher [employer] Avelino Yan MD MD kdr Ashtyn Damon RN RN ap3
[2022-07-21 17:55] VITALS: BP 146/89; TEMP 97.8; O2SAT 96
== END 2022-07-21 17:28 | disposition home or self-care (01) ==
LOC: ER 14:45
DX: N50.812 Left testicular pain (principal); N50.811 Right testicular pain
CPT/HCPCS: 76870; 81003; 99283

== ENCOUNTER 2022-10-22 22:49 | Observation (INO) | payer BC ==
--- OUTSIDE RECORDS SUMMARY | 2022-10-22 22:53 | XMS REPORT | Continuity of Care Document ---
:1975 Author Organization [facility] t Address [address] [place] [address] Care Team Providers Name Role Phone XAVIER LEWIS Primary Care Physician Unavailable SHANEKA CRAWLEY Attending Clinician Unavailable LAB90 Attending Clinician Unavailable Shaneka Crawley DO Attending Clinician DARREN RAMIREZ Attending Clinician Unavailable Darren Ramirez MD Attending Clinician Jhon RN, Shae Jones Attending Clinician Unavailable Lab, Adc Fam Pob I Attending Clinician Unavailable Sandra Callejas Attending Clinician SANDRA MENG Attending Clinician Unavailable DARREN RAMIREZ Admitting Clinician Unavailable Payers Payer Name Policy Type Policy Number Effective Date Expiration Date Rolando gracia [facility] 2 [id number] 2022 00:00:00 [facility] [id number] 2017 00:00:00 Problems Condition Condition Condition Status Onset Resolution Last Treating Co mments Source Name Details Category Date Date Treatment Clinician Date Spermatoce Spermatoce Disease Active K elsey le le 07-22 Seybold 00:00: - 00 Externa l Scrotal Scrotal Disease Active Cari pain pain 07-22 Seybold 00:00: - 00 Externa l Scrotal Scrotal Disease Active Cari sebaceous sebaceous 07-22 Seyb old cyst cyst 00:00: - 00 Externa l Other Other Disease Active Cari fatigue fatigue 07-22 Seybold 00:00: - 00 Externa l Well adult Well adult Disease Active K elsey exam exam 10-10 Seybold 00:00: - 00 Externa l Primary Primary Disease Active Cari hypertensi hypertensi 10-10 Se ybold on on 00:00: - 00 Externa l Class 3 Class 3 Disease Active Cari severe severe 10-10 Seybold obesity obesity 00:00: - due to due to 00 Externa excess excess l calories calories with with serious serious comorbidit comorbidit y and body y and body mass index mass index (BMI) of (BMI) of 40.0 to 40.0 to 44.9 in 44.9 in adult adult Shortness Shortness Disease Active Blaze sey of breath of breath 10-10 Seyb old 00:00: - 00 Externa l Abscess or Abscess or Problem Active C ommon cellulitis cellulitis Sp melecio of scalp of scalp [facility] Allergic Allergic Problem Active Commo n rhinitis rhinitis [facility] Obesity Obesity Problem Active Common [facility] Adult BMI Adult BMI Problem Active Com mon 39.0-39.9 39.0-39.9 Spir it kg/sq m kg/sq [facility] Onychomyco Onychomyco Problem Active C ommon sis sis [facility] Hyperlipid Hyperlipid Problem Active C ommon emia, emia, Spirit mixed mixed [facility] Benign Benign Problem Active Common essential essential Spir it HTN HTN [facility] Prediabete Prediabete Problem Active C ommon s s [facility] Dermoid Dermoid Diagnosis Active Commo n cyst of cyst of Spirit scalp scalp [facility] Allergies, Adverse Reactions, Alerts Allergy Allergy Status Severity Reaction(s) Onset Inactive Treating Comm ents Source Name Type Date Date Clinician NO KNOWN Drug Active Univers ALLERGIE Class ity of S [facility] Social History Social Habit Start Date Stop Date Quantity Comments Source Exposure to Yes [facility]-CoV-2 (event) [facility] Gender identity Cari Se ybold - External Sexual orientation Cari Fan - External Tobacco use and 2021-10-10 2021-10-10 Smokeless tobacco Ke dede Fan - exposure 00:00:00 00:00:00 non-user External Alcohol intake 2021-10-10 2021-10-10 Cari sharp - 00:00:00 00:00:00 External History of Social 2021-10-10 2021-10-10 Cari Fan - function 00:00:00 00:00:00 External Education 2021-10-10 2021-10-10 16 Cari Fan - 00:00:00 00:00:00 External Alcohol Comment 2021-10-10 2021-10-10 occasionally Cari Fan - 00:00:00 00:00:00 External Sex [birth year] Cari calhoun - 00:00:00 00:00:00 External Smoking Status Start Date Stop Date Source Unknown if ever smoked [facility] Never smoked tobacco Cari webster - External Medications Ordered Filled Start Stop Current Ordering Indication Dosage Frequency Signature Comments Components Source Medication Medication Date Date Medication? Clinician (SIG) Name Name Losartan Yes [id number] 1{tbl} Take 1 K elsey Potassium-H 7-28 tablet by [place] sharp CTZ 100-25 00:00: mouth - MG oral 00 daily Externa Tablet l ondansetron 2019-03 Yes [id number] 4mg Take 1 Univers 4 mg 2-28 tablet by ity of disintegrat 00:00: mouth [place] ing tablet 00 every 4 Medica l (four) Branch hours as needed for Nausea and Vomiting (N/V). benzonatate 2019-03 Yes [id number] 100mg Take 1 Univers 100 mg 2-28 capsule by ity of capsule 00:00: mouth 3 [place] 00 (three) Medical times Branch daily as needed for Cough. albuterol 2019-03 Yes [id number] 2{puff} Inhale 2 Univers 90 2-28 Puffs ity of mcg/actuati 00:00: every 4 Tanvir as on inhaler 00 (four) Medical hours as Branch needed for Wheezing or Shortness of Breath. Bactrim DS Bactrim DS 2019- No Ronni 1 tablet Common 07-07 Kovacev Spirit 00:00: 00:00 - [facility] 00 :00 [facility] Lisinopril- Lisinopril- Yes Ronni 1 tablet Common [facility] - [facility] Zyrtec Zyrtec Yes Ronni 1 tablet Common Allergy Allergy [facility] Vital Signs Vital Name Observation Time Observation Value Comments Source Systolic blood 2022-07-22 18:59:00 136 mm[Hg] Cari Seybold - pressure External Diastolic blood 2022-07-22 18:59:00 83 mm[Hg] Blazese y Seybold - pressure External Heart rate 2022-07-22 18:59:00 70 /min Cari Marshall eybold - External Body temperature 2022-07-22 18:59:00 36.72 Ekily Machelle tapia Seybold - External Respiratory rate 2022-07-22 18:59:00 15 /min Machelle tapia Seybold - External Body height 2022-07-22 18:59:00 185.4 cm Cari tapiabold - External Body weight 2022-07-22 18:59:00 131.09 kg Cari tapiabold - External BMI 2022-07-22 18:59:00 38.13 kg/m2 Cari tapiabold - External Oxygen saturation in 2022-07-22 18:59:00 98 /min Cari Rodriguezabhayeleanor - Arterial blood by External Pulse oximetry Systolic blood 2020-03-12 17:30:00 161 mm[Hg] Univer sity of [facility] Diastolic blood 2020-03-12 17:30:00 100 mm[Hg] Unive rsity [facility] Heart rate 2020-03-12 17:30:00 97 /min Universi [facility] Respiratory rate 2020-03-12 17:30:00 23 /min [facility] ersUT [facility] Oxygen saturation in 2020-03-12 17:30:00 95 /min University Arterial blood by [facility] Pulse oximetry Branch Body temperature 2020-03-12 16:43:00 36.94 Keily Univ ersity [facility] Body weight 2020-03-12 16:43:00 138.347 kg Universi [facility] Systolic blood 2020-03-12 17:30:00 161 mm[Hg] [facility] sity of pressure [facility] Diastolic blood 2020-03-12 17:30:00 100 mm[Hg] [facility] Heart rate 2020-03-12 17:30:00 97 /min [facility] Respiratory rate 2020-03-12 17:30:00 23 /min [facility] Oxygen saturation in 2020-03-12 17:30:00 95 /min [facility] Arterial blood by [facility] Pulse oximetry [place] Body temperature 2020-03-12 16:43:00 36.94 Keily [facility] Body weight 2020-03-12 16:43:00 138.347 kg [facility] Procedures Procedure Date / Time Performing Clinician Source Performed XR CHEST 1 VW 2020-03-12 17:04:47 Darren Ramirez [facility] TROPONIN I 2020-03-12 16:47:00 Darren Ramirez [facility] HEPATIC FUNCTION PANEL 2020-03-12 16:47:00 Darren Ramirez [facility] ([id number]) (ALB,T.PRO,BILI [facility] Branch T,BU/BC,ALT,AST,ALK PHOS) BASIC METABOLIC PANEL 2020-03-12 16:47:00 Darren Ramirez [facility] (NA, K, CL, CO2, Medical Branch GLUCOSE, BUN, CREATININE, CA) CBC WITH DIFF 2020-03-12 16:47:00 Darren Ramirez [facility] PROTHROMBIN TIME / INR 2020-03-12 16:47:00 [facility]ren Ramirez [facility] ACTIVATED PARTIAL 2020-03-12 16:47:00 Darren Ramirez [facility] THRMPLAS TANNER [facility] N-TERMINAL PRO-BNP 2020-03-12 16:47:00 Darren Ramirez [facility] NOTICE OF PRIVACY 2020-03-12 16:34:49 Doctor Unassigned, No Univ [facility] PRACTICES Name Medical Branch CONSENT/REFUSAL FOR 2020-03-12 16:34:30 Doctor Unassigned, No [facility] Name Medical [place] Encounters Start End Encounter Admission Attending Care Care Encounter Source Date/Time Date/Time Type Type Clinicians Facility Department ID 2022 2022 Outpatient PREZAS, CARI CARI [id number] Cari 09:30:00 09:30:00 SHANEKA Seybol d 2022-07-23 2022-07-23 Outpatient LAB90 CARI CARTER [id number] Cari 08:15:00 08:15:00 Seybol d 2022-07-22 2022-07-22 Outpatient PREZAS, CARI CARTER [id number] Cari 14:00:00 14:00:00 SHANEKA Seybol d 2022-07-22 2022-07-22 Outpatient PREZAS, CARI CARTER [id number] Cari 00:00:00 00:00:00 SHANEKA Seybol d 2022-07-21 2022-07-21 Outpatient PREZAS, CARI CARTER [id number] Cari 00:00:00 00:00:00 SHANEKA Seybol d 2021-10-14 2021-10-14 Outpatient PREZAS, CARI CARTER [id number] Cari 00:00:00 00:00:00 SHANEKA Seybol d 2021-10-10 2021-10-10 Office PrezasJuan [id number] Cari 16:00:00 16:30:00 Visit Shaneka Vidales [id number] [facility] [id number] 2021-10-10 2021-10-10 Outpatient PREZAS, CARI CARTER [id number] Cari 16:00:00 16:00:00 SHANEKA Seybol d 2020-03-12 2020-03-12 [facility] [id number] Univers 10:36:00 13:00:00 DARREN gordon [facility] 2020-03-12 2020-03-12 Emergency James [facility] [id number] Univers 10:36:00 13:00:00 Darren Villa [id number] i liudmila [facility] 4.2.7.2.686 [facility] [id number] [address] 2020-03-12 2020-03-12 Emergency James [facility] [id number] 10:36:00 13:00:00 Darren Villa [id number] [place] 4.2.7.2.686 [place] [id number] 2020-03-12 2020-03-12 Nurse Jhon BEVERLEY [id number] Univers 00:00:00 00:00:00 Triage Shae MASON [id number] it y of [facility] 4.2.7.2.686 Tanvir as [id number] [address] 2020-03-12 2020-03-12 Nurse BEVERLEY Ferreira [id number] 00:00:00 00:00:00 Triage Shae MASON [id number] [facility] 4.2.7.2.686 [id number] 2020-03-05 2020-03-05 Laboratory Lab, [facility] Pob I [facility] [id number] [facility] 13:09:50 13:29:50 Only Sandra Meng 350.1.13.10 ity of [place] 4.2.7.2.686 Tanvir as Professio [id number] [place] dical [address] Office Building [facility] 2020-03-05 2020-03-05 Laboratory Lab, [facility] [id number] 13:09:50 13:29:50 Only Walter Dockery I Health [id number] [place] 4.2.7.2.686 Professio [id number] [place] [address] Office Building [facility] 2020-03-05 2020-03-05 Outpatient R LUCIA [facility] [id number] Univers 13:20:00 13:20:00 SANDRA ity of [facility] 2018-07-07 2018-07-07 Outpatient Gage Arteaga [id number] Common 15:45:00 15:45:00 t Specialty/U Sp melecio Specialty rology - [facility] /Urology Clinic [facility] 2018-07-07 2018-07-07 Outpatient Brazjuly Arteaga [id number] Common 10:00:00 10:00:00 t [facility] it [employer] [facility] 2018-04-30 2018-04-30 Outpatient Gage Almontet [id number] Common 08:00:00 08:00:00 keyona Guzmán [employer] Spir [employer] [facility] Results Test Description Test Test Results Result [...] normal limits. No acute osseousabnormality is demonstrated. [facility], Radiant Results Inft User - 03/12/2020 11:59 [...] . YENIFER (test code = YENIFER) The [facility] patient population mean normal value for aPTT is 30 seconds. Lab Interpretation (test Normal code = 97768-0) [facility] / [id number] 17:37:00 Test Item Value Reference Range Interpretation [...] tions. Lab Interpretation (test Normal code = 83832-5) [facility] [id number] 17:28:00 Test Item Value Reference Range Interpretation Comments TROPONIN I (test <0.012 See_Comment [Automated code = 4393755823) message] The system which generated this result [...] ? Lab Interpretation Normal (test code = 97841-3) [facility] [id number] 17:24:00 Test Item Value Reference Range Interpretation Comments NT-proBNP (test code 17 pg/mL See_Comment [Autom ated = 0672149815) message] The system which generated this result transmitted reference range : <=125. The reference range was not used to interpret this result as normal/abnormal . YENIFER (test code = YENIFER) Biotin has been reported to cause a negative bias, interpret results relative to patient's use of biotin. Lab Interpretation Normal (test code = 11332-8) [facility] Metabolic Panel (NA, K, CL, CO2, GLUCOSE, BUN, CREATININE, CA)2020-03-12 17:16:00 Test Item Value Reference Range Interpretation Comments NA (test code = 135 mmol/L 135-145 8918379811) K (test code = 4.0 mmol/L 3.5-5 6243184653) CL (test code = 100 mmol/L 98-108 0963221171) CO2 TOTAL (test code = 24 mmol/L 23-31 3116760119) AGAP (test code = 2-16 1719668906) BUN (test code = 12 mg/dL 7-23 3708994233) GLUCOSE (test code = 123 mg/dL 70-110 H 9814020605) CREATININE (test code = 0.77 mg/dL 0.6-1.25 9490596973) CALCIUM (test code = 8.8 mg/dL 8.6-10.6 8650264951) eGFR Calculation mL/min/1.73m2 (Non-) (test code = 4031335133) eGFR Calculation mL/min/1.73m2 () (test code = 0323086104) YENIFER (test code = YENIFER) Association of [...] tests). Lab Interpretation Abnormal (test code = 28334-3) [facility] (ALB, T.PRO, BILI T, BU/BC, ALT, AST, ALK PHOS)2020-03-12 17:16:00 Test Item Value Reference Range Interpretation Comments TOTAL BILI (test code = 6707331901) 0.7 mg/dL 0.1-1.1 BILI UNCON (test code = 3449524147) 0.6 mg/dL 0.1-1.1 BILI CONJ (test code = 0991506592) 0.0 mg/dL 0-0.3 T PROTEIN (test code = 2880230852) 8.0 g/dL 6.3-8.2 ALBUMIN (test code = 2558921858) 4.3 g/dL 3.5-5 ALK PHOS (test code = 3646224001) 85 U/L 34-122 ALTv (test code = 1742-6) 29 U/L 5-50 AST(SGOT) (test code = 6295601259) 30 U/L 13-40 Lab Interpretation (test code = Normal 77922-3) [facility] with [id number] 17:12:00 Test Item Value Reference Range Interpretation Comments WBC (test code = See_Comment [Automated 2990-2) message] The sy stem which generated this [...] (test code = 36.6 fL 38.5-51.6 L 21598-5) RDW-CV (test code = 12.0 % 12.1-15.4 L 788-0) PLT (test code = See_Comment [Automated 777-3) message] The sy stem which generated this result transmitted reference range : 150 - 328 10*3/ ?L. The reference r naren was not used to interpret this result as normal/abnormal . MPV (test code = 10.3 fL 9.8-13 69256-6) NRBC/100 WBC (test See_Comment [Automat ed code = 2852848717) message] The system which generated this result transmitted reference range : 0.0 - 10.0 /100 WBCs. The refer ence range was not u sed to interpret th is result as normal/abnormal . NRBC x10^3 (test code <0.01 See_Comment [Auto mated = 2137708800) message] The s ystem which generated this result transmitted reference range : 10*3/?L. The reference range was not used to interpret this result as normal/abnormal . GRAN MAT (NEUT) % 58.8 % (test code = 770-8) IMM GRAN % (test code 0.20 % = 1615797224) LYMPH % (test code = 31.6 % 736-9) MONO % (test code = 8.6 % 5905-5) EOS % (test code = 0.6 % 713-8) BASO % (test code = 0.2 % 706-2) GRAN MAT x10^3(ANC) 2.79 10*3/uL 1.99-6.95 (test code = 4636644308) IMM GRAN x10^3 (test <0.03 0-0.06 code = 8042733135) LYMPH x10^3 (test code 1.50 10*3/uL 1.09-3.23 = 731-0) MONO x10^3 (test code 0.41 10*3/uL 0.36-1.02 = 742-7) EOS x10^3 (test code = 0.03 10*3/uL 0.06-0.53 L 711-2) BASO x10^3 (test code <0.03 0.01-0.09 = 704-7) Lab Interpretation Abnormal (test code = 90950-6) [facility]"
--- NOTE | 2022-10-23 00:20 | EDPHYS ---
Physician Documentation [facility] Name: Ozzy Vail Age: 46 yrs Sex: Male : 1975 Arrival Date: 10/22/2022 Time: 22:49 Bed 7 Private MD: ED Physician Rubin Taylor HPI: 10/23 00:09 This 46 yrs old Male presents to ER via Ambulatory with complaints of WEAK ABD sunny DIZZY, CHEST PAIN. 00:09 The patient or guardian reports chest pain that is located primarily in the substernal sunny area, chest diffusely. Onset: just prior to arrival. WEAK, DIZZY, CHEST PAIN, BILATERAL LEG WEAKNESS. The patient presents with dizziness, generalized weakness, lightheadedness. Onset: The symptoms/episode began/occurred last night. Context: occurred HOTEL, AC OUT AT HOME. Modifying factors: The symptoms are alleviated by lying down, the symptoms are aggravated by movement of head. Associated signs and symptoms: Pertinent positives: chest pain. The pain does not radiate. Severity of symptoms: At their worst the symptoms were moderate in the emergency department the symptoms have improved moderately. Associated signs and symptoms: Pertinent positives: dizziness. The chest pain is described as burning, causing indigestion. Modifying factors: The symptoms are alleviated by nothing. the symptoms are aggravated by nothing. Severity of pain: At its worst the pain was mild in the emergency department the pain is unchanged. Patient's baseline: Neuro: alert and fully oriented. Historical: - Allergies: 10/22 23:00 No Known Allergies; cm10 - PMHx: 23:00 Hypertension; cm10 - PSHx: 23:00 None; cm10 - Immunization history:: Adult Immunizations unknown. - Social history:: Smoking status: Patient denies any tobacco usage or history of. - Family history:: not pertinent. ROS: 10/23 00:09 Constitutional: Negative for fever, chills, and weight loss, Eyes: Negative for injury, sunny pain, redness, and discharge, ENT: Negative for injury, pain, and discharge, Neck: Negative for injury, pain, and swelling, Cardiovascular: Negative for chest pain, palpitations, and edema, Respiratory: Negative for shortness of breath, cough, wheezing, and pleuritic chest pain, Abdomen/GI: Negative for abdominal pain, nausea, vomiting, diarrhea, and constipation, Back: Negative for injury and pain, : Negative for injury, bleeding, discharge, and swelling, MS/Extremity: Negative for injury and deformity, Skin: Negative for injury, rash, and discoloration, Neuro: Negative for headache, weakness, numbness, tingling, and seizure, Psych: Negative for depression, anxiety, suicide ideation, homicidal ideation, and hallucinations, Allergy/Immunology: Negative for hives, rash, and allergies, Endocrine: Negative for neck swelling, polydipsia, polyuria, polyphagia, and marked weight changes, Hematologic/Lymphatic: Negative for swollen nodes, abnormal bleeding, and unusual bruising. MS/extremity: Negative for acute changes, swelling, tenderness. Exam: 00:09 Constitutional: This is a well developed, well nourished patient who is awake, alert, sunny and in no acute distress. Head/Face: Normocephalic, atraumatic. Eyes: Pupils equal round and reactive to light, extra-ocular motions intact. Lids and lashes normal. Conjunctiva and sclera are non-icteric and not injected. Cornea within normal limits. Periorbital areas with no swelling, redness, or edema. ENT: Nares patent. No nasal discharge, no septal abnormalities noted. Tympanic membranes are normal and external auditory canals are clear. Oropharynx with no redness, swelling, or masses, exudates, or evidence of obstruction, uvula midline. Mucous membranes moist. Neck: Trachea midline, no thyromegaly or masses palpated, and no cervical lymphadenopathy. Supple, full range of motion without nuchal rigidity, or vertebral point tenderness. No Meningismus. Chest/axilla: Normal chest wall appearance and motion. Nontender with no deformity. No lesions are appreciated. Cardiovascular: Regular rate and rhythm with a normal S1 and S2. No gallops, murmurs, or rubs. Normal PMI, no JVD. No pulse deficits. Respiratory: Lungs have equal breath sounds bilaterally, clear to auscultation and percussion. No rales, rhonchi or wheezes noted. No increased work of breathing, no retractions or nasal flaring. Abdomen/GI: Soft, non-tender, with normal bowel sounds. No distension or tympany. No guarding or rebound. No evidence of tenderness throughout. Back: No spinal tenderness. No costovertebral tenderness. Full range of motion. Male : Normal genitalia with no discharge or lesions. Skin: Warm, dry with normal turgor. Normal color with no rashes, no lesions, and no evidence of cellulitis. MS/ Extremity: Pulses equal, no cyanosis. Neurovascular intact. Full, normal range of motion. Neuro: Awake and alert, GCS 15, oriented to person, place, time, and situation. Cranial nerves II-XII grossly intact. Motor strength 5/5 in all extremities. Sensory grossly intact. Cerebellar exam normal. Normal gait. Psych: Awake, alert, with orientation to person, place and time. Behavior, mood, and affect are within normal limits. 00:09 Musculoskeletal/extremity: DVT Exam: No signs of deep vein thrombosis. no pain, no swelling, no tenderness, negative Homans' sign noted on exam, no appreciated bluish discoloration, no erythema, no increased warmth. 00:16 ECG was reviewed by the Attending Physician. [facility] Vital Signs: 10/22 22:58 BP 143 / 80; Pulse 74; Resp 18; Temp 97.7(O); Pulse Ox 97% on R/A; Weight 131.54 kg; cm10 Height 6 ft. 1 in. ; Pain 05/23; 10/23 00:32 BP 148 / 91; Pulse 72; Resp 19; Pulse Ox 98% on R/A; kd3 00:39 BP 147 / 88; Pulse 73; Resp 16; Pulse Ox 99% on R/A; kd3 02:17 BP 147 / 81; Pulse 71; Resp 16; Pulse Ox 98% on R/A; kd3 10/22 22:58 Body Mass Index 38.26 (131.54 kg, 185.42 cm) cm10 10/22 22:58 Pain Scale: Adult cm10 NIH Stroke Scale Scores: 00:26 NIHSS Score: 0 sunny MDM: 10/22 23:19 Patient medically screened. [facility] 10/23 00:22 Differential diagnosis: abnormal EKG, acute myocardial infarction, acute pericarditis, sunny anxiety, coronary artery disease congestive heart failure Cholelithiasis esophagitis, gastritis, gastroesophageal reflux disease (GERD), hiatal hernia, mitral valve prolapse, peptic ulcer disease, pleurisy, stable angina, unstable angina. Differential Diagnosis sepsis. HEART Score: History: Slightly Suspicious (0), ECG: Normal (0), Age: > 45 and < 65 years (1), Risk Factors: > or = 3 Risk factors for atherosclerotic disease (2), [Hypertension] [+ Family HX] [Obesity] Troponin: < or = 1 x Normal Limit (0). Differential diagnosis: cardiac arrhythmia, CVA, generalized weakness, idiopathic dizziness, near-syncope, TIA. The patient was given aspirin in the Emergency Department. JOSE ALFREDO Risk Score: 1 - Three or more CAD risk factors, [Family Hx], [HTN], 1 - Recent [<24hrs] Severe Angina, TOTAL SCORE = 2. Data reviewed: vital signs, nurses notes, lab test result(s), EKG, radiologic studies, CT scan, plain films. Consideration of Admission/Observation Patient was admitted/placed on observation. Escalation of care including admission/observation considered. I considered the following discharge prescriptions or medication management in the emergency department Medications were administered in the Emergency Department. See MAR. Test considered but Not performed: CT: CT CHEST RO PE. Historians other than the Patient: Spouse/Significant Other: , INFORMED. Care significantly affected by the following chronic conditions: Hypertension, Obesity. Counseling: I had a detailed discussion with the patient and/or guardian regarding: the historical points, exam findings, and any diagnostic results supporting the discharge/admit diagnosis, the presence of at least one elevated blood pressure reading (>120/80) during this emergency department visit, lab results, radiology results, the need for further work-up and treatment in the hospital. 10/22 23:21 Order name: Basic Metabolic Panel; Complete Time: 02:[address] [facility] 10/22 23:21 Order name: CBC with Diff; Complete Time: 02:[address] [facility] 10/22 23:21 Order name: LFT's; Complete Time: 02:[address] [facility] 10/22 23:21 Order name: Magnesium; Complete Time: 02:[address] [facility] 10/22 23:21 Order name: NT PRO-BNP; Complete Time: 02:[address] [facility] 10/22 23:21 Order name: PT-INR; Complete Time: 02:[address] [facility] 10/22 23:21 Order name: Troponin HS; Complete Time: 02:[address] [facility] 10/22 23:21 Order name: Lipase; Complete Time: 02:[address] [facility] 10/22 23:21 Order name: Urinalysis w/ reflexes; Complete Time: 02:[address] [facility] 10/23 01:53 Order name: Urinalysis w/ reflexes EDMS 10/23 01:53 Order name: Basic Metabolic Panel EDMS 10/23 01:53 Order name: Basic Metabolic Panel EDIA 10/23 01:53 Order name: CBC with Automated Diff EDMS 10/23 01:53 Order name: Magnesium EDMS 10/23 01:53 Order name: Magnesium EDMS 10/23 01:53 Order name: Troponin High Sensitivity EDMS 10/23 01:53 Order name: Troponin High Sensitivity EDIA 10/23 01:53 Order name: CBC with Automated Diff EDIA 10/22 23:21 Order name: XRAY Chest (1 view) [facility] 10/23 00:00 Order name: CT Head Brain wo Cont [facility] 10/23 00:00 Order name: US Carotid Artery Bilateral [facility] 10/22 23:21 Order name: EKG; Complete Time: 23:[address] [facility] 10/23 01:53 Order name: NPO EDIA 10/22 23:21 Order name: Cardiac monitoring; Complete Time: 00:[address] [facility] 10/22 23:21 Order name: EKG - Nurse/Tech; Complete Time: 00:[address] [facility] 10/22 23:21 Order name: IV Saline Lock; Complete Time: 00:[address] [facility] 10/22 23:21 Order name: Labs collected and sent; Complete Time: 00:[address] [facility] 10/22 23:21 Order name: O2 Per Protocol; Complete Time: 00:[address] [facility] 10/22 23:21 Order name: O2 Sat Monitoring; Complete Time: 00:[address] [facility] EC:16 Rate is 73 beats/min. Rhythm is regular. QRS [place] is Normal. DE interval is normal. QRS sunny interval is normal. QT interval is normal. No Q waves. T waves are Normal. No ST changes noted. Clinical impression: NSR w/ Non-specific ST/T Changes and No evidence of ischemia. Interpreted by me. Reviewed by me. Administered Medications: 00:30 Drug: NS 0.9% IV 1000 ml Route: IV; Rate: 1 bolus; Site: right antecubital; kd3 02:21 Follow up: IV Status: Completed infusion; IV Intake: 1000ml kd3 00:30 Drug: foLIC Acid IVPB 1 mg Route: IVPB; Site: right antecubital; kd3 02:21 Follow up: IV Status: Completed infusion kd3 00:30 Drug: Meclizine PO 50 mg Route: PO; kd3 02:21 Follow up: Response: No adverse reaction kd3 00:47 Drug: Aspirin PO Chewable Tablet 324 mg Route: PO; kd3 02:20 Follow up: Response: No adverse reaction kd3 00:47 Drug: Famotidine IVP 20 mg Route: IVP; Site: right antecubital; kd3 02:21 Follow up: Response: No adverse reaction kd3 Disposition Summary: 10/23/22 00:19 Hospitalization Ordered Hospitalization Status: Observation sunny Provider: Radha Aly cha Location: Telemetry/MedSurg (observation) sunny Condition: Fair sunny Problem: new sunny Symptoms: have improved sunny Bed/Room Type: Standard sunny Room Assignment: 414(10/23/22 02:13) cg Diagnosis - Weakness sunny - Dizziness and giddiness sunny - Chest pain, unspecified sunny - Essential (primary) hypertension sunny Forms: - Medication Reconciliation Form sunny - SBAR form sunny NIH Stroke Scale - NIH Stroke Score Date: 10/23/2022 Time: 00:26 Total Score = 0 10. Dysarthria (speech clarity - read or repeat words) - 0(Normal) 11. Extinction and Inattention (visual/tactile/auditory/spatial/personal) - 0(No abnormality) 1a. Level of Consciousness (LOC) - 0(Alert) 1b. Level of Consciousness (LOC) (Month \T\ Age) - 0(Both) 1c. LOC Commands (Open \T\ Closes Eyes/Director Of Medical Review) - 0(Both) 2. Best Gaze (Lateral Gaze Paresis) - 0(Normal) 3. Visual Field Loss - 0(No visual loss) 4. Facial Palsy - 0(Normal) 5a. Left Arm: Motor (10-second hold) - 0(No drift) 5b. Right Arm: Motor (10-second hold) - 0(No drift) 6a. Left Leg: Motor (5-second hold - always test supine) - 0(No drift) 6b. Right Leg: Motor (5-second hold - always test supine) - 0(No drift) 7. Limb Ataxia (finger/nose \T\ heel/hogan - test with eyes open) - 0(Absent) 8. Sensory Loss (pinprick arms/legs/face) - 0(Normal) 9. Best Language: Aphasia (description/naming/reading) - 0(No aphasia) Initials: sunny Signatures: Dispatcher [employer] Rubin Sanchez MD MD cha Garcia, Cindy RN RN Joslyn Muñoz RN RN kd3 Nataliya Gonzalez RN RN cm10 Corrections: (The following items were deleted from the chart) 02:13 00:19 sunny walters
--- NOTE | 2022-10-23 00:20 | ER ---
Nurse's Notes [facility] Name: Ozzy Vail Age: 46 yrs Sex: Male : 1975 Arrival Date: 10/22/2022 Time: 22:49 Bed 7 Private MD: Diagnosis: Weakness;Dizziness and giddiness;Chest pain, unspecified;Essential (primary) hypertension Presentation: 10/22 22:58 Chief complaint: Patient states: bilateral blurred vision, shortness of breath, chest cm10 pain to the center of his chest and bilateral leg numbness. Pt states that this began at 8pm. Coronavirus screen: Vaccine status: Patient reports being unvaccinated. Client denies travel out of the [place] in the last 14 days. Ebola Screen: Patient denies travel to an Ebola-affected area in the 21 days before illness onset. No symptoms or risks identified at this time. Initial Sepsis Screen: Does the patient meet any 2 criteria? No. Patient's initial sepsis screen is negative. Does the patient have a suspected source of infection? No. Patient's initial sepsis screen is negative. Risk Assessment: Do you want to hurt yourself or someone else? Patient reports no desire to harm self or others. Onset of symptoms was October 22, 2022. 22:58 Method Of Arrival: Ambulatory cm10 22:58 Acuity: LAITH 2 cm10 Historical: - Allergies: 23:00 No Known Allergies; cm10 - PMHx: 23:00 Hypertension; cm10 - PSHx: 23:00 None; cm10 - Immunization history:: Adult Immunizations unknown. - Social history:: Smoking status: Patient denies any tobacco usage or history of. - Family history:: not pertinent. Screenin/10 00:31 [facility] ED Fall Risk Assessment (Adult) History of falling in the last 3 months, kd3 including since admission No falls in past 3 months (0 pts) Confusion or Disorientation No (0 pts) Intoxicated or Sedated No (0 pts) Impaired Gait No (0 pts) Mobility Assist Device Used No (0 pt) Altered Elimination No (0 pt) Score/Fall Risk Level 0 - 2 = Low Risk Maintained a safe environment. Abuse screen: Denies threats or abuse. Denies injuries from another. Nutritional screening: No deficits noted. Tuberculosis screening: No symptoms or risk factors identified. Assessment: 00:31 General: Appears uncomfortable, Behavior is calm, cooperative. Pain: Complains of pain kd3 in chest. Neuro: Level of Consciousness is awake, alert, obeys commands, Oriented to person, place, time, situation. Cardiovascular: Patient's skin is warm and dry. Respiratory: Airway is patent Trachea midline Respiratory effort is even, unlabored, Respiratory pattern is regular, symmetrical. EENT: Reports blurred vision. Vital Signs: 10/22 22:58 BP 143 / 80; Pulse 74; Resp 18; Temp 97.7(O); Pulse Ox 97% on R/A; Weight 131.54 kg; cm10 Height 6 ft. 1 in. ; Pain 05/23; 10/23 00:32 BP 148 / 91; Pulse 72; Resp 19; Pulse Ox 98% on R/A; kd3 00:39 BP 147 / 88; Pulse 73; Resp 16; Pulse Ox 99% on R/A; kd3 02:17 BP 147 / 81; Pulse 71; Resp 16; Pulse Ox 98% on R/A; kd3 10/22 22:58 Body Mass Index 38.26 (131.54 kg, 185.42 cm) cm10 10/22 22:58 Pain Scale: Adult 10 NIH Stroke Scale Scores: 00:26 NIHSS Score: 0 sunny ED Course: 10/22 22:58 Patient arrived in ED. cm10 23:00 Triage completed. cm10 23:00 Arm band placed on Patient placed. EKG completed in triage. Results shown to MD. cm10 23:19 Rubin Taylor MD is Attending Physician. sunny 23:34 Joslyn Bond, [place] is Primary Nurse. kd3 23:48 XRAY Chest (1 view) In Process Unspecified. EDMS 10/23 00:18 Radha Aly MD is Hospitalizing Provider. sunny 00:29 Troponin HS Sent. kd3 00:29 PT-INR Sent. kd3 00:30 NT PRO-BNP Sent. kd3 00:30 Magnesium Sent. kd3 00:30 LFT's Sent. kd3 00:30 CBC with Diff Sent. kd3 00:30 Basic Metabolic Panel Sent. kd3 00:30 Inserted saline lock: 20 gauge in right antecubital area, using aseptic technique. kd3 Blood collected. 00:31 Urinalysis w/ reflexes Sent. kd3 00:31 Lipase Sent. kd3 00:32 Patient has correct armband on for positive identification. Provided Education on: . kd3 00:51 US Carotid Artery Bilateral In Process Unspecified. EDMS 01:00 CT Head Brain wo Cont In Process Unspecified. EDMS 02:18 No provider procedures requiring assistance completed. Patient admitted, IV remains in kd3 place. Administered Medications: 00:30 Drug: NS 0.9% IV 1000 ml Route: IV; Rate: 1 bolus; Site: right antecubital; kd3 02:21 Follow up: IV Status: Completed infusion; IV Intake: 1000ml kd3 00:30 Drug: foLIC Acid IVPB 1 mg Route: IVPB; Site: right antecubital; kd3 02:21 Follow up: IV Status: Completed infusion kd3 00:30 Drug: Meclizine PO 50 mg Route: PO; kd3 02:21 Follow up: Response: No adverse reaction kd3 00:47 Drug: Aspirin PO Chewable Tablet 324 mg Route: PO; kd3 02:20 Follow up: Response: No adverse reaction kd3 00:47 Drug: Famotidine IVP 20 mg Route: IVP; Site: right antecubital; kd3 02:21 Follow up: Response: No adverse reaction kd3 Medication: 00:32 VIS not applicable for this client. kd3 Intake: 02:21 IV: 1000ml; Total: 1000ml. kd3 Outcome: 00:19 Decision to Hospitalize by Provider. sunny 02:18 Admitted to Med/surg kd3 02:18 Condition: stable 02:18 Discharge instructions given to patient, Instructed on the need for admit, Demonstrated understanding of instructions. 03:05 Patient left the ED. kd3 NIH Stroke Scale - NIH Stroke Score Date: 10/23/2022 Time: 00:26 Total Score = 0 10. Dysarthria (speech clarity - read or repeat words) - 0(Normal) 11. Extinction and Inattention (visual/tactile/auditory/spatial/personal) - 0(No abnormality) 1a. Level of Consciousness (LOC) - 0(Alert) 1b. Level of Consciousness (LOC) (Month \T\ Age) - 0(Both) 1c. LOC Commands (Open \T\ Closes Eyes/Notereader) - 0(Both) 2. Best Gaze (Lateral Gaze Paresis) - 0(Normal) 3. Visual Field Loss - 0(No visual loss) 4. Facial Palsy - 0(Normal) 5a. Left Arm: Motor (10-second hold) - 0(No drift) 5b. Right Arm: Motor (10-second hold) - 0(No drift) 6a. Left Leg: Motor (5-second hold - always test supine) - 0(No drift) 6b. Right Leg: Motor (5-second hold - always test supine) - 0(No drift) 7. Limb Ataxia (finger/nose \T\ heel/hogan - test with eyes open) - 0(Absent) 8. Sensory Loss (pinprick arms/legs/face) - 0(Normal) 9. Best Language: Aphasia (description/naming/reading) - 0(No aphasia) Initials: sunny Signatures: Dispatcher [employer] Rubin Sanchez MD MD cha Doucette, Kyli, RN RN kd3 Nataliya Gonzalez RN RN cm10
[2022-10-23] MEDS ORDERED: MECLIZINE HCL 12.5 MG TAB ONE (00:22)
[2022-10-23] MEDS ORDERED: NA CHLORIDE 0.9% 1,000 ML ONE (00:22)
[2022-10-23] MEDS ORDERED: FOLIC ACID 5 MG/ML VIAL ONE (00:24)
[2022-10-23] MEDS ORDERED: FAMOTIDINE 20 MG/2 ML VIAL IV ONE (00:47)
[2022-10-23] MEDS ORDERED: ASPIRIN 81 MG CHEWABLE TABLET ONE (00:47)
[2022-10-23 00:48] LABS: Protime INR 1.03
[2022-10-23 00:50] LABS: Absolute Lymphocytes (CBC) 1.3 K/uL (0.7-4.9); Hematocrit 40.8 % (39.6-49.0); Lymphocytes % 11.4 % (15.3-44.8); MCV 85.4 fL (80-100); MPV 8.7 fL (7.6-11.3); Platelets 239 thou/uL (152-406); RBC Red Blood Cell Count 4.78 M/uL (4.33-5.43)
[2022-10-23 00:50] LABS: Specific Gravity 1.023 (1.005-1.030); Urine Bacteria None Seen /HPF (<20); Urine Bilirubin NEGATIVE (Negative); Urine Blood Negative (Negative); Urine Clarity Extremely Turbid (Clear); Urine Color Light-Orange (Yellow); Urine Glucose NEGATIVE (Negative); Urine Protein TRACE (Negative); Urine RBC None Seen /HPF (None Seen); Urine Urobilinogen Normal (Normal); Urine pH 7.5 (5.0-7.0)
[2022-10-23 01:06] LABS: ALT/SGPT 31 U/L (16-61); AST/SGOT 13 U/L (15-37); Albumin 3.4 g/dL (3.4-5.0); Alkaline Phosphatase 64 U/L (45-117); BUN Blood Urea Nitrogen 21 mg/dL (7-18); Bicarbonate 25 mEq/L (21-32); Bilirubin Total 0.3 mg/dL (0.2-1.0); Glomerular Filtration Rate 87 ml/min (=/>90); Glucose Level 153 mg/dL (74-106); Lipase 40 U/L (13-75); Magnesium 2.2 mg/dL (1.6-2.4); NT PRO-BNP 17 pg/mL (<125); Potassium 3.6 mEq/L (3.5-5.1); Protein, Total 7.4 g/dL (6.4-8.2); Sodium Level 138 mEq/L (136-145); Troponin High Sensitivity 6.4 pg/mL (<58.9)
[2022-10-23 01:08] LABS: Bilirubin Direct < 0.1 mg/dL (0-0.2); Bilirubin Indirect, Calculated ND mg/dL (0.2-0.8)
--- NOTE | 2022-10-23 01:47 | P.HP ---
Certification for Inpatient Patient admitted to: Observation With expected LOS: <2 Midnights Patient will require the following post-hospital care: None Practitioner: I am a practitioner with admitting privileges, knowledge of patient current condition, hospital course, and medical plan of care. Services: Services provided to patient in accordance with Admission requirements found in Title 42 Section 412.3 of the Code of Federal Regulations Patient History Date of Service: 10/23/22 Reason for admission: chest pain History of Present Illness: 47-year-old male with a past medical history of hypertension presents to the emergency room with chest pain. He reports chest pain started today as substernal, described as heartburn. Denies radiation, denies nausea vomiting. He reports associated weakness and dizziness, shortness of breath that started today at rest. Symptoms worse with ambulation. He denies fever, chills, nausea vomiting diarrhea, edema. Plan to admit for chest pain rule out [facility], dizziness, weakness. NIH stroke scale 0, EKG6 Rate is 73 beats/min. Rhythm is regular. QRS [place] is Normal. CT interval is normal. QRS interval is normal. QT interval is normal. No Q waves. T waves are Normal. No ST changes noted. Clinical impression: NSR w/ Non-specific ST/T Changes and No evidence of ischemia. Laboratory evaluation CBC WBCs 11.60, mild left shift of 81.1, CMP BUN 21 creatinine 1.07, urinalysis trace protein, pH elevated at 7.5, CT of the head ordered, carotid ultrasound ordered, chest x-ray ordered pending report Allergies No Known Allergies Allergy (Verified 10/23/22 03:16) - Past Medical/Surgical History -: Hypertension -: Elbow surgery - Social History Smoking Status: Never smoker Alcohol use: Yes CD- Drugs: No Caffeine use: Yes Review of Systems 10-point ROS is otherwise unremarkable Physical Examination - Physical Exam General: Alert, In no apparent distress, Oriented x3 HEENT: Atraumatic, Normocephalic, PERRLA Neck: Supple, 2+ carotid pulse no bruit, JVD not distended Respiratory: Clear to auscultation bilaterally, Normal air movement Cardiovascular: No edema, Normal pulses, Regular rate/rhythm Capillary refill: <2 Seconds Gastrointestinal: Normal bowel sounds, Soft and benign Musculoskeletal: No clubbing, No swelling Integumentary: No rashes, No breakdown Neurological: Normal speech, Normal strength at 5/5 x4 extr, Cranial nerves 3-12 intact - Studies Laboratory Data (last 24 hrs) 10/23/22 10/23/22 10/23/22 00:20 00:20 00:20 WBC 11.60 H Hgb 13.7 Hct 40.8 Plt Count 239 PT 11.3 INR 1.03 Sodium 138 Potassium 3.6 BUN 21 H Creatinine 1.07 Glucose 153 H Magnesium 2.2 Total Bilirubin 0.3 AST 13 L ALT 31 Alkaline Phosphatase 64 Lipase 40 Assessment and Plan - Plan Assessment plan chest pain rule out [facility] Card[facility] consult, telemetry Trend troponin resume appropriate home meds CT of the head, carotid ultrasound, chest x-ray pending results Lipid panel in the a.m., aspirin, antihyperlipidemic, nitro as needed, low-dose beta-jan twice daily Leukocytosis Could represent indication of early infection Essential hypertension resume appropriate home meds Obesity BMI 38 DVT prophylaxis Lovenox Diet n.p.o. after midnight Full code Discharge Plan: Home Plan to discharge in: 24 Hours - Advance Directives Does patient have a Living Will: No Does patient have a Durable POA for Healthcare: No - Code Status/Comfort Care Code Status: Full Code Physician Review: Patient Assessed, Agree with Above Assessment and Plan Critical Care: No Time Spent Managing Pts Care (In Minutes): 50
[2022-10-23] MEDS ORDERED: ONDANSETRON 4 MG/2 ML VIAL IV PRN (01:51)
[2022-10-23 03:15] VITALS: BMI 38.2
[2022-10-23 03:35] VITALS: O2SAT 98
[2022-10-23] MEDS ORDERED: NITROGLYCERIN 0.4 MG/TAB SL PRN (03:41)
[2022-10-23] MEDS ORDERED: METOPROLOL TAR 25 MG TAB PO SCH (06:00)
[2022-10-23] MEDS ORDERED: ASPIRIN 325 MG TAB PO SCH (09:00)
--- NOTE | 2022-10-23 14:11 | EKG ---
Test Date: 2022-10-22 Test Time: 22:53:51 Park Maintenance Technician: SILVIA MEASUREMENT RESULTS: Intervals: Rate: 73 NE: 158 QRSD: 96 QT: 380 QTc: 418 [place]: P: 48 NE: 158 QRS: 41 T: 41 INTERPRETIVE STATEMENTS: Normal sinus rhythm Normal ECG Compared to ECG 05/10/2020 20:59:55 No significant changes Electronically Signed On 10-23-22 14:10:24 CDT by Ruddy Turner
--- NOTE | 2022-10-23 15:03 | CON ---
Date of Consultation: 10/23/2022 Reason For Consultation: Chest pain. History Of Present Illness: A 47-year-old male, history of hypertension, presented to the emergency room with chest pain, retrosternal, radiates to the left upper extremity. He claims that he felt jeni e indigestion, heartburn like, and feeling weak and dizzy in general. Since hospitalization, he has no further chest pain episodes. Past Medical History: As outlined above in the HPI, hypertension. Medications: Refer to reconciliation sheet for detailed list. Allergies: NO KNOWN DRUG ALLERGIES. Family History: No premature coronary artery disease or cancer. Social History: He does not smoke or drink. Does not use any drugs. Review of Systems: All systems reviewed and they were negative except what mentioned in HPI. Physical Examination: Vital Signs: Reviewed. Head and Neck: Pupils are equal, reactive to light. Intact eye movements. No JVD. No cervical lym phadenopathy. Neck is supple. Thyroid is not enlarged. Lungs: Clear to auscultation bilaterally. No rhonchi, wheezing, or crackles. No accessory muscle u se. Heart: Regular rate and rhythm. No extra sounds. Abdomen: Soft, nontender. Bowel sounds positive. No organomegaly. No masses or hernia. No rigidi ty or rebound. Extremities: No edema, clubbing, or cyanosis. Intact pulses. Skin: No rash. Neurologic: Alert, awake, oriented x3. No acute focal deficits appreciated. Investigations: Troponin 6.4 and 6.1, and BUN 21, creatinine 1.07, and hemoglobin 13.7. Assessment And Recommendations: 1.Chest pain, atypical with negative troponin. If the third troponin is negative, the patient can b e released and he is to follow up with me in the office. We will plan for outpatient stress test and an echo. 2.Hypertension. Blood pressure is controlled. Continue current home medications. SR/MODL Voice ID: [id number] Report ID: [id number]
[2022-10-23 16:55] LABS: Specific Gravity 1.013 (1.005-1.030); Urine Bilirubin NEGATIVE (Negative); Urine Blood Negative (Negative); Urine Clarity Clear (Clear); Urine Color Colorless (Yellow); Urine Glucose NEGATIVE (Negative); Urine Protein NEGATIVE (Negative); Urine Urobilinogen Normal (Normal); Urine pH 7.5 (5.0-7.0)
[2022-10-23 17:17] VITALS: BP 139/70; TEMP 98.3
--- NOTE | 2022-10-23 17:19 | RAD REPORT ---
EXAM DESCRIPTION: MRI - Brain W/Wo Cont - 10/23/2022 4:53 pm CLINICAL HISTORY: Incoordination and dizziness COMPARISON: 10/23/[address] 12/08/2012 brain MRI TECHNIQUE: Multiplanar multisequence MRI of the brain performed before and after intravenous adminis tration 20 mL MultiHance. FINDINGS: Motion artifact somewhat limits evaluation, despite attempts at repeat imaging. No evidence of acute infarct or other diffusion signal abnormality. No evidence of acute intracranial hemorrhage or abnormal extra-axial fluid collections. Ventricular caliber within normal for age. Midline structures are unremarkable. No white matter signal abnormalities. No mass effect or midline shift. Major vascular flow voids are preserved. No abnormal intra-axial or meningeal enhancement. Mastoid air cells show calcification on the right. Chronic opacification of the left frontal sinus. IMPRESSION: No acute intracranial process. No evidence of ventriculomegaly or mass effect. No abnorm al enhancement.
--- NOTE | 2022-10-23 17:37 | P.DS ---
Admission Date: 10/23/22 Discharge Date: 10/23/22 Disposition: ROUTINE DISCHARGE Discharge Condition: FAIR Reason for Admission: chest pain - Problems (1) Chest pain Current Visit: Yes Status: Acute (2) Numbness and tingling of both upper extremities Current Visit: Yes Status: Acute (3) Essential hypertension Current Visit: Yes Status: Acute Brief History of Present Illness: 47-year-old male with a past medical history of hypertension presents to the emergency room with chest pain. He reported chest pain started as substernal, described as heartburn. Denied radiation, denied nausea vomiting. He reported associated weakness and dizziness, and shortness of breath Symptoms worse with ambulation. He denies fever, chills, nausea vomiting diarrhea, edema. NIH stroke scale 0, EKG6 Rate is 73 beats/min. Rhythm is regular. QRS [place] is Normal. [place] interval is normal. QRS interval is normal. QT interval is normal. No Q waves. T waves are Normal. No ST changes noted. Clinical impression: NSR w/ Non-specific ST/T Changes and No evidence of ischemia. Laboratory evaluation CBC WBCs 11.60, mild left shift of 81.1, CMP BUN 21 creatinine 1.07, urinalysis trace protein, pH elevated at 7.5, CT of the head ordered, carotid ultrasound ordered. Patient was hospitalized for further management. Hospital Course: Patient placed under observation on the medical floor. His troponin trended negative. CT head was negative for acute disease. MRI of the brain with contrast done did not show any acute intracranial abnormality or enhancement. Orthostatic vitals negative. Patient was seen in consultation by cardiology who recommended further evaluation as an outpatient with stress test. Acute CVA ruled out. Patient with stable vitals. LDL within normal limit. Patient is discharged to follow-up with cardiology as outpatient. Vital Signs/Physical Exam: Temp Pulse Resp BP Pulse Ox 98.3 F 69 16 139/70 93 10/23/22 16:00 10/23/22 16:00 10/23/22 16:00 10/23/22 16:10/23/22 16:00 General: Alert, In no apparent distress, Oriented x3 HEENT: Mucous membr. moist/pink Neck: JVD not distended Respiratory: Clear to auscultation bilaterally, Normal air movement Cardiovascular: No edema, Regular rate/rhythm, Normal S1 S2 Gastrointestinal: Soft and benign, Non-distended, No tenderness Musculoskeletal: No swelling, No tenderness Integumentary: No rashes Neurological: Normal speech, Normal strength at 5/5 x4 extr Laboratory Data at Discharge: WBC 11.60 thou/uL (4.3-10.9) H 10/23/22 00:20 Hgb 13.7 g/dL (13.6-17.9) 10/23/22 00:20 Hct 40.8 % (39.6-49.0) 10/23/22 00:20 Plt Count 239 thou/uL (152-406) 10/23/22 00:20 PT 11.3 SECONDS (9.5-12.5) 10/23/22 00:20 INR 1.03 10/23/22 00:20 Sodium 138 mEq/L (136-145) 10/23/22 00:20 Potassium 3.6 mEq/L (3.5-5.1) 10/23/22 00:20 BUN 21 mg/dL (7-18) H 10/23/22 00:20 Creatinine 1.07 mg/dL (0.70-1.30) 10/23/22 00:20 Glucose 153 mg/dL (74-106) H 10/23/22 00:20 Magnesium 2.2 mg/dL (1.6-2.4) 10/23/22 00:20 Total Bilirubin 0.3 mg/dL (0.2-1.0) 10/23/22 00:20 AST 13 U/L (15-37) L 10/23/22 00:20 ALT 31 U/L (16-61) 10/23/22 00:20 Alkaline Phosphatase 64 U/L (45-117) 10/23/22 00:20 Triglycerides 243 mg/dL (<150) H 10/23/22 05:20 Cholesterol 175 mg/dL (<200) 10/23/22 05:20 HDL Cholesterol 35 mg/dL (40-60) L 10/23/22 05:20 Cholesterol/HDL Ratio 5.00 10/23/22 05:20 Lipase 40 U/L (13-75) 10/23/22 00:20 Home Medications: Aspirin [Aspirin EC 81 MG] 81 mg PO DAILY #30 tab 10/23/22 Losartan/Hydrochlorothiazide [Losartan-Hctz 100-25 mg Tab] 1 each PO DAILY 10/23/22 Omeprazole 20 mg PO DAILY 10/23/22 New Medications: Aspirin [Aspirin EC 81 MG] 81 mg PO DAILY #30 tab Diet: AHA Activity: Ad dennise Followup: Christofer Crawley DO [Primary Care Provider] - 1-2 Weeks Time spent managing pt's care (in minutes): 28
--- NOTE | 2022-10-23 18:11 | RAD REPORT ---
EXAM DESCRIPTION: Carotid Artery Bilateral CLINICAL HISTORY: 47 years, Male, DIZZINESS COMPARISON: No prior studies were available for comparison. FINDINGS: Sonographic grayscale, color and Doppler interrogation of the carotid and vertebral arteri es was performed on 10/23/2022 at 12: 35 AM. No significant soft or hard plaque is identified. Systolic and diastolic arterial velocities are as follows: RIGHT: CCA mid, 99 cm/sec, 21 cm/sec Carotid bulb, 86 cm/sec, 17 cm/sec ICA proximal, 89 cm/sec, 24 cm/sec ICA mid, 87 cm/sec, 24 cm/sec ICA distal, 98 cm/sec, 35 cm/sec ECA, 105 cm/sec Vertebral, 41 cm/sec antegrade ICA/ CCA = 1.01 LEFT: CCA mid, 112 cm/sec, 25 cm/sec Carotid bulb, 96 cm/sec, 22 cm/sec ICA proximal, 92 cm/sec, 25 cm/sec ICA mid, 80 cm/sec, 24 cm/sec ICA distal, 73 cm/sec, 26 cm/sec ECA, 107 cm/sec Vertebral, 34 cm/sec antegrade ICA/ CCA = 0.82 IMPRESSION: 1. Normal bilateral carotid artery ultrasound. 2. Vertebral flow is antegrade bilaterally. Electronically signed by: Patricia Toeldo DO 10/23/2022 1:29 AM CDT Due to temporary technical issues with the PACS/Fluency reporting system, reports are being signed by the in house radiologists without review as a courtesy to insure prompt reporting. The interpreting radiologist is fully responsible for the content of the report.
--- NOTE | 2022-10-23 18:33 | RAD REPORT ---
EXAM DESCRIPTION: CT head without IV contrast CLINICAL HISTORY: 47 years Male WEAKNESS TECHNIQUE: Multiple axial CT images of the brain were performed followed by sagittal and coronal rec onstructed images. The CT study is performed according to ALARA (as low as reasonably achievable) or ALARA/IMAGE GENTLY, with automatic adjustment of mA and/or kV according to patient size. Performed on: 10/23/2022 at 12:54 AM COMPARISON: None. FINDINGS: Brain: There is no evidence of mass, acute mass effect or midline shift. There are no acut e extra-axial fluid collections. There is no evidence of acute intracranial hemorrhage. The cerebra l sulci and ventricles are normal in size and configuration. There are no focal abnormal areas of inc reased or decreased attenuation. Paranasal Sinuses and Mastoids: There is opacification of the left frontal sinus. The mastoid air naveed ls are clear. Orbits: The orbital contents are grossly unremarkable. Bones: No acute osseous abnormalities are identified. Soft Tissues: No focal soft tissue abnormalities are identified. IMPRESSION: 1. No evidence of acute intracranial pathology. 2. Opacification of the left frontal sinus. Electronically signed by: Patricia Toledo DO 10/23/2022 1:32 AM CDT Due to temporary technical issues with the PACS/Fluency reporting system, reports are being signed by the in house radiologists without review as a courtesy to insure prompt reporting. The interpreting radiologist is fully responsible for the content of the report.
--- NOTE | 2022-10-23 19:36 | RAD REPORT ---
EXAM DESCRIPTION: XR Chest, 1 View CLINICAL HISTORY: The patient is 46 years old and is Male; CHEST PAIN TECHNIQUE: Frontal view of the chest. COMPARISON: No relevant prior studies available. FINDINGS: Lungs: Mildly prominent interstitial and vascular markings. No consolidation. Pleural space: Unremarkable. No pneumothorax. Heart: Unremarkable. Mediastinum: Unremarkable. Bones/joints: Unremarkable. IMPRESSION: Mildly prominent interstitial and vascular markings. No consolidation. Electronically signed by: Edison Dos Santos MD 10/23/2022 12:14 AM CDT Due to temporary technical issues with the PACS/Fluency reporting system, reports are being signed by the in house radiologists without review as a courtesy to insure prompt reporting. The interpreting radiologist is fully responsible for the content of the report.
[2022-10-23] MEDS ORDERED: ATORVASTATIN 20 MG TAB PO SCH (21:00)
== END 2022-10-23 18:35 | disposition home or self-care (01) ==
LOC: ER 22:49 → 4TH 10-23 02:30
PROVIDERS: ADMIT Internal Medicine; ATTEND Internal Medicine
DX: R07.9 Chest pain, unspecified (principal); D72.829 Elevated white blood cell count, unspecified; I10 Essential (primary) hypertension; R20.0 Anesthesia of skin
CPT/HCPCS: 93005; 85025; 81001; 80048; 36415; 83735; 85610; 80061; 80076; 81003; 84484 ×2; 83690; 83880; 70450; 71045; 93880; 70553; A9577; J8597; J7030

== ENCOUNTER 2023-09-08 12:00 | Day surgery (SDC) | payer BC ==
--- NOTE | 2023-08-31 09:00 | RAD REPORT ---
EXAM DESCRIPTION: RAD - Chest Pa And Lat (2 Views) - 08/31/2023 8:47 am CLINICAL HISTORY: pre op left heart cath Chest pain. COMPARISON: Chest Single View dated 10/22/2022; Chest Single View dated 05/11/2020; CHEST PA AND LAT 2 VIEW dated 12/07/2012 FINDINGS: The lungs are clear. The heart is normal in size. No displaced fractures. IMPRESSION: No acute or concerning finding suspected.
[2023-08-31 11:57] LABS: Absolute Basophils 0.1 K/uL (0-0.5); Absolute Eosinophils 0.2 K/uL (0-0.5); Absolute Monocytes 0.8 K/uL (0.1-1.3); Absolute Neutrophil 5.8 K/uL (1.8-8.0); Basophils % 0.7 % (0-1.3); Eosinophils % 2.2 % (0-4.4); Hematocrit 40.2 % (39.6-49.0); Hemoglobin 13.7 g/dL (13.6-17.9); Lymphocytes % 23.1 % (15.3-44.8); MCH 29.9 pg (27.0-35.0); MCHC 34.2 g/dL (32.0-36.0); MCV 87.3 fL (80-100); MPV 9.7 fL (7.6-11.3); Monocytes % 8.7 % (3.3-12.3); Neutrophils % 65.3 % (41.7-73.7); Platelets 239 thou/uL (152-406); Red Cell Distribution Width 12.8 % (12.1-15.2)
[2023-08-31 12:07] LABS: PT Prothrombin Time 11.8 SECONDS (9.5-12.5); PTT, Activated Partial Thromb 29.5 SECONDS (24.3-36.9); Protime INR 1.07
[2023-09-01 11:18] LABS: Anion Gap 9.6 mEq/L (5.0-15.0); Potassium 3.6 mEq/L (3.5-5.1)
--- NOTE | 2023-09-01 14:18 | EKG ---
Test Date: 2023-08-31 Test Time: 08:29:51 Verify Rep: PREO MEASUREMENT RESULTS: Intervals: Rate: 66 MI: 156 QRSD: 88 QT: 376 QTc: 394 [place]: P: 0 MI: 156 QRS: 64 T: 18 INTERPRETIVE STATEMENTS: Normal sinus rhythm Normal ECG Compared to ECG 10/22/2022 22:53:51 No significant changes Electronically Signed On 09-01-23 14:13:09 CDT by Ruddy Turner
[2023-09-08] MEDS ORDERED: NA CHLORIDE 0.9% 500 ML ONE (12:13)
[2023-09-08] MEDS ORDERED: ATROPINE SULF 1 MG/10 ML SYR IV ONE (12:46)
[2023-09-08] MEDS ORDERED: HEPA 1000U/500MLS 2,000 UNIT/1,000 ML BAG IV ONE (12:46)
[2023-09-08] MEDS ORDERED: FENTANYL CITR 100 MCG/2 ML ONE (12:46)
[2023-09-08] MEDS ORDERED: LIDOCAINE 1% 20 ML MDV ONE (12:46)
[2023-09-08] MEDS ORDERED: VERAPAMIL HCL 10 MG/4 ML VIAL IV ONE (12:46)
[2023-09-08] MEDS ORDERED: MIDAZOLAM HCL 2 MG/2 ML INJ ONE (12:46)
[2023-09-08] MEDS ORDERED: HEPARIN 5000 UNIT/ML 1 ML VIAL ONE (12:47)
[2023-09-08] MEDS ORDERED: CLOPIDOGREL 75 MG TABLET ONE (12:47)
[2023-09-08] MEDS ORDERED: HEPARIN 10,000 UNIT/10 ML VIAL IV ONE (12:47)
[2023-09-08] MEDS ORDERED: TICAGRELOR 90 MG TABLET PO ONE (12:47)
[2023-09-08] MEDS ORDERED: ASPIRIN 325 MG TAB ONE (12:49)
[2023-09-08 13:34] VITALS: TEMP 97.2
[2023-09-08 16:06] VITALS: BP 149/95; O2SAT 99
--- NOTE | 2023-09-08 16:34 | OP ---
Date of Procedure: 09/08/2023 Surgeon: RAFFI MATOS Procedures Performed: 1.Selective coronary angiogram. 2.Left heart catheterization. Indication: Chest pain with abnormal stress test suggestive of unstable angina. Access: Right radial artery 6-Rw[place] closed with TR band, and right common femoral artery 6-Rwandan c losed with 6-[place] Angio-Seal. Complications: None. Bleeding: Less than 20 mL. Anesthesia: Total sedation time was 45 minutes. I used fentanyl and Versed. Description Of Procedure: After risks, benefits, and alternatives were explained, the patient agreed to procedure and signed informed consent. The patient was brought into cardiac catheterization [facility], prepped and draped in the usual sterile fashion. Then, I accessed right radial artery using pediatric micropuncture kit and placed a 6-[place] Slender sheath and could not get the wire up due to tortuosity and then I abandoned this access and then took the sheath out and put TR band and then I accessed the right common femoral artery using micropuncture kit, ultrasound guidance, and fluoroscop y with the 6-[place] sheath and took 6-[place] JL4 catheter into the aortic root, engaged the left main, took standard views, exchanged for a 6-[place] JR4 catheter across the aortic valve over th e wire, measured the LVEDP, pullback did not require any gradient, then I engaged the RCA, took stand moises views, and then I removed the catheter and the sheath and placed 6-[place] Angio-Seal for closure with good hemostasis, and for the radial sheath, TR band was used for closure with good hemostasis. Findings: 1.Left main; large and normal. 2.LAD; large and normal. Diagonal 1 branch has ostial 50% stenosis. The rest of the LAD and diagon als are normal. 3.Left circumflex; large and codominant and normal. 4.RCA; large and codominant with proximal 30% stenosis. 5.LVEDP is around 20 mmHg. It is elevated. Conclusion: 1.Mild nonobstructive coronary artery disease. 2.Elevated LVEDP. Recommendation: Medical management. SR/MODL Voice ID: [id number] Report ID: [id number]
== END 2023-09-08 16:10 | disposition home or self-care (01) ==
LOC: CCL 12:00
PROVIDERS: ATTEND Internal Medicine
DX: I25.10 Atherosclerotic heart disease of native coronary artery without angina pectoris (principal); I10 Essential (primary) hypertension; I51.7 Cardiomegaly; Z79.02 Long term (current) use of antithrombotics/antiplatelets; Z79.899 Other long term (current) drug therapy
CPT/HCPCS: 93005; 85025; 80048; 36415; 83721; 85610; 85730; 71046; 93458; 76937; C1893; Q9966; C1760; G0269; J1644; J2001; J2250; J3010; J7040; 99152; 99153; J0461